=== PATIENT | male | born 1945 | race Caucasian/White ===

== ENCOUNTER 2024-12-12 20:59 | Inpatient (IN) | payer MEDICARE, OTHER, SELFPAY ==
[2024-12-12 14:56] VITALS: BP 171/95
[2024-12-12 15:27] LABS: Hematocrit 49.1 % (39.0-52.0); Hemoglobin 15.8 g/dL (13.0-18.0); Mean Corp Hgb Conc. 32.2 g/dL (33.0-37.0); Mean Corpuscular Volume 90.3 fL (80.0-94.0); Nucleated Red Blood Cells % 0 % (-); Platelet Count 234 10^3/uL (130-400); Red Cell Dist. Width 13.4 % (11.5-14.5)
[2024-12-12 15:45] LABS: Blood Urea Nitrogen 17 mg/dl (9-20); Calcium 10.4 mg/dl (8.4-10.2); Carbon Dioxide 27 mmol/L (22-30); Chloride 106 mmol/L (98-107); Glucose 159 mg/dl (70-99); Potassium 4.7 mmol/L (3.5-5.1); Sodium 142 mmol/L (135-145); eGFR > 60.00
[2024-12-12 18:01] VITALS: BMI 24.0
[2024-12-12 18:03] VITALS: BP 147/79
--- NOTE | 2024-12-12 19:12 | ED.GENMED ---
History of Present Illness
General
Chief Complaint: Facial Problem
Source: patient
Exam Limitations: none and non verbal-adult
Time Seen by Provider: 12/12/24 18:08
Nursing documentation reviewed up to this point in time: agreed with
History of Present Illness
History of Present Illness:
Patient is a 79-year-old male was sent by Dr. Mix. Patient has been been being treated by ENT for otitis externa however as per ENT patient now with facial nerve weakness concerning for tumor or malignant otitis externa. Patient was sent in for
imaging by Dr. Cantrell.
Patient reports he has had left ear pain for the past 5 weeks. It was treated by his family doctor for otitis externa with drops and symptoms never improved and he was seen by ENT. He was given a stronger drop by ENT however complains of
worsening. He reports he went to ENT office today and they noticed that he had a left facial droop and palsy.
Continues to complain of ear.
He denies any associated fever chills respiratory pain. He denies any headache.
Past History
Past History
ED Past Medical History: Cancer (Prostate), Hypercholesterolemia and Other (COVID PNA 02/26/22 hospitalized for 6 days [place])
ED Past Surgical History: Appendectomy
Social History
Tobacco: Non-smoker
Alcohol: Occasional
Personal:
Living: with family
Phy Exam
General Physical Exam
General Presentation: no apparent distress
General age: appears stated age
General Skin: warm and dry
General Habitus: normal
General Mental: alert
General Hydration: appears well hydrated
ENT Exam
ENT Exam: EOMI and other (Right canal /tm nml: left ear : tender over mastoid no erythema over mastoid + purulent drainage to canal unable to fully visualize TM )
Eye Exam
Eye Exam: PERRL and EOMI
Eye Exam General: PERRL: bilateral and EOM intact: bilateral
Pupil Exam: Bilateral: round and reactive
Cardiovascular Exam
Cardiovascular Exam: regular rate/rhythm, no murmur and normal peripheral pulses
Pulmonary Exam
Pulmonary Exam: lungs clear and no respiratory distress
Neurological Exam
Neurological Exam: alert, oriented x3 and other (+ left facial droop; difficulty closing left eye)
Musculoskeletal Exam
Musculoskeletal Exam: full ROM
Skin Exam
Skin Exam: normal color and warm/dry
Psychiatric Exam
Psychiatric Exam: normal mood/affect
Course
Orders/Labs/Results
Orders:
Orders
12/12/24 15:07
CT Facial Bones W/ Iv Contrast Urgent
Comment:
Reason For Exam: Malignant otitis externa/facial nerve palsy
CT Head With Iv Contrast Urgent
Comment:
Reason For Exam: Malignant otitis externa/facial nerve palsy
IV Insert/Care/Rem.- Treatment PRN
12/12/24 15:15
Basic Metabolic Panel Urgent
Complete Blood Count/With Diff Urgent
12/12/24 19:51
Add On- LAB Urgent
Tests Added?: lyme progressive
12/12/24 19:53
CEFTAZidime [Fortaz] 1,000 mg IV NOW STA
Abnormal Lab Results
12/12/24
15:15
MCHC 32.2 L g/dL
(33.0-37.0)
Abs Immat Gran (auto) 0.1 H 10^3/uL
(0-0.05)
Absolute Neuts (auto) 8.9 H 10^3/uL
(1.4-6.5)
Absolute Lymphs (auto) 1.1 L 10^3/uL
(1.2-3.4)
Immature Gran % 0.9 H %
(0-0.5)
Neutrophils % 84.5 H %
(42.2-75.2)
Lymphocytes % 10.6 L %
(20.5-51.1)
Glucose 159 H mg/dl
(70-99)
Calcium 10.4 H mg/dl
(8.4-10.2)
12/12/24 15:15
12/12/24 15:15
Vital Signs
Initial and Last Documented VS:
Initial Vital Signs
Temp Pulse Resp BP Pulse Ox
98.5 F 84 18 171/95 98
12/12/24 14:56 12/12/24 14:56 12/12/24 14:56 12/12/24 14:56 12/12/24 14:56
Last Documented Vital Signs
Temp Pulse Resp BP Pulse Ox
98.3 F 84 18 147/79 96
12/12/24 18:00 12/12/24 14:56 12/12/24 14:56 12/12/24 18:03 12/12/24 19:15
MDM/Problems Addressed
Differential Diagnosis Includes:
not limited to: otitis externa, facial palsy, mastoiditis
MDM/Problems Addressed:
As documented patient is a 79-year-old male being treated by ENT for otitis externa for the past several weeks however today developed facial palsy on the left side. Patient is tender over the mastoid however there is no erythema he has obvious
purulent drainage in the canal. He denies any obvious fever chills. His white count is normal. On exam he does have a palsy ; facial droop on the left and difficulty closing eye on the left. He was sent in by ENT Dr. Cantrell, imaging does confirm
moderate opacification of left mastoid air cells suggesting mastoiditis no evidence regarding the, moderate thickening of the left external ear cartilage with some stranding of the adjacent fat suggesting otitis externa. Case reviewed again with
ENT who does recommend ceftazidime and admission to the hospital service. Will still add on a Lyme.
*Radiology
Radiology exam reviewed: radiology read reviewed
*Pulse Oximetry
SaO2: 96
Oxygen Mode of Delivery: Room air
Patient hypoxic: no
*Critical Care Note
Total Time (30-74mins, 75-104mins- exclusive of procedures): Not Applicable
Patient Management
Discussion with other providers: [employer]ant (DR cantrell )
ED Attending Note
-
Portions of this chart may have been created with voice recognition software.� Occasional wrong word or��sound alike� substitutions may have occurred due to the inherent limitations of voice recognition software.
Discharge Plan
Departure
Patient Disposition: Admit
Date of Disposition: 12/12/24
Time of Disposition: 20:01
Admit to doctor: hospitalist
Presentation/result/management discussed w/ accepting MD/DO: Hospitalist
Patient with high blood pressure during this ER visit?: Yes
Condition: Fair
Covid-19: Not Applicable
Discharge Problem:
Acute mastoiditis, Otitis externa, left sided facial palsy
Prescriptions:
No Action
omeprazole 40 mg capsule,delayed release(DR/EC)
40 mg PO DAILY
fluticasone propionate 50 mcg/actuation [place],Suspension
1 spray INTRANASAL DAILY
rosuvastatin 10 mg tablet
10 mg PO HS
ipratropium-albuterol 0.5 mg-3 mg(2.5 mg base)/3 mL Solution For Nebulization
3 ml inhalation R Q4HPRN PRN (Reason: shortness of breath/wheezing) Qty: 90 0RF
prednisone 10 mg Tablet
See Rx Instructions .ROUTE .COMPLEX Qty: 30 0RF
Rx Instructions:
Take By Mouth:
40 mg daily x3 days, 30 mg daily x3 days,
20 mg daily x3 days, 10 mg daily x3 days.
Referrals:
Richelle Marley MD [Family Provider, Family Practice]
Interventions
Interventions:
*Risk Screen - Suicide Last Done: 12/12/24 14:56
*General Assessment Last Done: 12/12/24 14:56
*Neglect/Abuse Screening Last Done: 12/12/24 18:02
*ED- Fall Risk Assessment Last Done: 12/12/24 18:02
*ED COVID-19 Vaccine History Last Done: 12/12/24 14:56
ED- Neurological Assessment Last Done: 12/12/24 17:55
ED-Skin Assessment Last Done: 12/12/24 17:55
Discharge Date and Time
Print Language: MOHAWK
--- NOTE | 2024-12-12 20:20 | HPS.HSE ---
Family Physician
-
Family Physician: Richelle Marley
Chief Complaint
-
Left ear otitis media, tender mastoid, left facial droop
History of Present Illness
79-year-old male sent in by Dr. Cantrell from ENT due to being treated for left otitis externa however patient woke up with weakness/left-sided facial droop and palsy to left side of face. He has had reported left ear pain for the past 5 weeks was
using prior drops to his ear which did not improve. He then was seen by ENT and prescribed ciprofloxacin dexamethasone drops to the left ear. He complains of pain on and off to the left ear that he takes Tylenol for. He was visibly digging in his
ear during my exam and advised not to be touching the ear canal as it is currently infected. His states he frequently digs in the ear with his fingernail. CT revealed otitis externa with left side mastoiditis. Patient denies headache, fever,
chills, chest pain, palpitations, cough, shortness of breath, abdominal pain, nausea, vomiting, diarrhea, urinary symptoms. He has past medical history of prostate cancer, HLD, COVID February 26, 2022 treated in hospital for 6 days [place],
pacemaker, osteoarthritis, rheumatoid arthritis, GERD, cholelithiasis
Medical History
Past Medical History
Past Medical History: Reports Other
Additional Past Medical History:
Prostate cancer
HLD
COVID February 26, 2022 treated in hospital for 6 days [place]
Pacemaker
Osteoarthritis
Rheumatoid arthritis
HLD
GERD
cholelithiasis
Past Surgical History: Reports Other
Additional Past Surgical History:
Appendectomy
Bilateral knee replacement
Cataract extraction
Social History
Tobacco: Non-smoker
Alcohol: None
Drug: None
Personal:
Living: With Family ( Areli)
Employment: Retired
Family History
Family History: Not pertinent
Allergies / Home Medications
Allergies reflects when Allergies were last updated in [employer].
Home Medications with original date entered in [employer]
Allergy/Medication List:
Allergies
Allergy/AdvReac Type Severity Reaction Status Date / Time
linezolid Allergy Unknown Verified 12/12/24 15:03
tramadol Allergy Unknown Verified 12/12/24 15:03
gabapentin AdvReac 'Got Verified 12/12/24 15:03
spacey'
sulfamethoxazole (From AdvReac 'Got Verified 12/12/24 15:03
Bactrim) spacey'
trimethoprim (From Bactrim) AdvReac 'Got Verified 12/12/24 15:03
spacey'
Home Medications
rosuvastatin 10 mg tablet 10 mg PO HS High cholesterol 04/01/22
M.V.I. Adult 1 tab PO DAILY 12/12/24
Pepcid AC 10 mg PO BID 12/12/24
Tylenol Arthritis 1,000 mg PO Q6H PRN mild pain temp>100.4F 12/12/24
ciprofloxacin-dexamethasone 4 drp LEFT EAR BID 12/12/24
hydroxychloroquine 200 mg PO DAILY 12/12/24
prednisone 10 mg PO DAILY 12/12/24
Review of Systems
-
History Source: Patient and Family ( Areli)
A 12 point ROS was completed and negative except as noted: Yes
Constitutional: Denies Fever or Chills
EENT: Reports Other (Left mastoid pain, left ear pain with swelling of ear canal, left side facial droop, chronic [place] does not have hearing aids in); Denies Sore Throat or Runny Nose
Respiratory: Denies Cough or Trouble Breathing
Cardiac: Reports Other (Pacemaker present left upper chest wall); Denies Chest Pain, Diaphoresis, Palpitations or Syncope
Abdomen/GI: Denies Abdominal Pain, Nausea, Vomiting, Diarrhea, Constipated, Bloody Stools or Black Stools
: Denies Dysuria, Frequency, Flank Pain, Incontinence or Difficulty Voiding
Musculoskeletal: Denies Joint Pain or Edema
Skin: Denies Itching or Rash
Neurological: Denies Dizzy, Headache or Weakness
Endocrine: Reports No Symptoms
Hematologic/Lymphatic: Reports No Symptoms
Psych: Reports Calm
Physical Exam
Vital Signs
Vital Signs
Temp Pulse Resp BP Pulse Ox
98.3 F 84 18 147/79 96
12/12/24 18:00 12/12/24 14:56 12/12/24 14:56 12/12/24 18:03 12/12/24 19:15
Physical Exam
General: Comfortable and Conversant; No Fever, Chills or Sweats
HEENT: NormoCephalic, Anicteric, Moist mucous membranes, PERRLA, [place] Conjunctivae, No Ptosis, Hearing Impaired and Other (Left mastoid pain, left ear pain with swelling of ear canal, left side facial droop, chronic [place] does not have hearing aids in)
Respiratory: Clear; No Wheezes, Rales or Rhonchi
Cardiac: S1/S2 and Regular Rhythm; No Murmur, Rub, Gallop or Peripheral Edema
Breast: Deferred by me
GI: Soft, Non Tender, Non Distended, Normal Bowel Sounds and No Hepatosplenomegaly
Rectal: Deferred by Provider
Genito-urinary: Deferred by me
Musculoskeletal: No Clubbing, No Cyanosis and No Edema
Skin: Warm and Dry; No Rash or Jaundice
Neuro: AO x 3, Nonfocal/grossly intact, Facial Droop (Left side) and Other (Chronic [place] does not have hearing aids in); No Slurred Speech, Tremors or Sedated
Psych: Calm
Laboratory Results
-
12/12/24 15:15
12/12/24 15:15
Data Reviewed
-
CT Scan: Report Reviewed by me
Lab Data: Labs Reviewed by me
Impression/Plan
-
Impression/plan:
Admit to Medr
#Acute otitis externa left-sided with left-sided mastoiditis
-Consult ENT�being treated by Dr. Cantrell
- Check Lyme
- IV ceftazidime
- Continue prednisone 10 mg daily x 3 more days
- Continue Tylenol for pain, oxycodone moderate to severe pain(tolerated during knee surgery)
- Follow CBC, BMP
CT facial bones with IV contrast:
1. Moderate thickening of the left external ear cartilage with some stranding of the adjacent fat, findings suggesting otitis externa.
2. Moderate opacification of the left mastoid air cells, suggesting mastoiditis. No evidence for bony destruction. The left middle ear appears clear.
#Pacemaker
#HLD
- cont crestor 10 mg hs
#Osteoarthritis
#Rheumatoid arthritis
- pt used to be on methortrexate
- Continue Plaquenil 200 mg daily
#History of GERD
#Hx Cholelithiasis
-Continue Pepcid 10 mg twice daily
Other PMH:
COVID February 26, 2022 treated in hospital for 6 days [place]
Prostate cancer
DVT prophylaxis
Subcu Lovenox
Full code
[2024-12-12] MEDS: FORTAZ 1000 MG IV (20:26)
[2024-12-12 20:48] VITALS: BP 157/74
--- NOTE | 2024-12-12 21:12 | W.PN.UPDATE ---
Update Note
Progress Note Update
Patient seen in conjunction with ALEKSANDRA. I agree defined summation physical. I concur with assessment and plan listed otherwise.
This is a 79-year-old male with past medical history of hyperlipidemia, rheumatoid arthritis and status post pacemaker who presents to the emergency department from ENT clinic (Dr. Mix) for IV antibiotics.
Patient developed otitis externa about 5 weeks ago status post total topical management but has not developed left-sided facial weakness concerning for malignant otitis externa. Patient was started on steroids 2 days ago. He now reports worsening
pain. He still able to chew and swallow and tolerate oral intake. Denies any vision changes. Was seen in the ENT office today and was noted to have a left facial droop at the level of the maxillary level. He denies any associated fevers or
chills.
In the emergency department he was afebrile, blood pressure was 155/74 with a pulse rate of 75 and was satting 90% on room air. CBC was unremarkable. Electrolytes were normal. BUN and creatinine were normal. CT head and CT facial bones showing
moderate thickening of the left external ear cartilage with some stranding of the adjacent fat, findings suggesting otitis externa and moderate opacification of the left mastoid air cells, suggesting mastoiditis. No evidence for bony destruction.
The left middle ear appears clear.
Assessment and plan
Otitis externa complicated by mastitis with facial nerve paresis on the left
- Admit to MedSurg
- IV ceftaz/metronidazole
- Blood cultures afebrile
- Pain control and antiemetics
- Continue steroid taper
- DC topical agent
- ENT consulted and will be following
DVT prophylaxis -Lovenox subcu
CODE STATUS�full code
[2024-12-12 21:52] VITALS: BP 162/83; BMI 24.0
[2024-12-12] MEDS: CRESTOR 10 MG PO (21:57)
[2024-12-12] MEDS: TYLENOL 650 MG PO (21:57)
[2024-12-12] MEDS: ROXICODONE 5 MG PO (21:57)
--- NOTE | 2024-12-12 22:00 | PTCARENOTE ---
Pt ambulated independently from stretcher to bed. AAOx3, 5/10 pain to left ear. PRN oxycodone 5mg and tylenol 650mg provided to pt. POC reviewed with pt. Pt oriented to room, call tate in reach. VSS. NIH performed d/t left facial droop present
on admission to ED; NIH score of 2 for left facial droop. Pt reports that the facial droop began this morning when he went to his primary doctor.
[2024-12-13] MEDS: ROXICODONE 5 MG PO ×3 (02:13→20:22)
[2024-12-13] MEDS: TYLENOL 650 MG PO ×2 (02:14→18:17)
[2024-12-13] MEDS: FORTAZ IV (03:48)
[2024-12-13] MEDS: STERILE WATER FOR INJECTION IV ×2 (03:48→22:49)
[2024-12-13] MEDS: STERILE WATER FOR INJECTION 10 ML IV ×2 (03:57→11:49)
[2024-12-13] MEDS: FORTAZ 1000 MG IV ×2 (03:57→11:48)
[2024-12-13 07:33] VITALS: BP 157/80
--- NOTE | 2024-12-13 07:50 | W.PN.HOSP.TC ---
Addendum entered and electronically signed by Johny Vo MD 12/13/24 15:09:
left sided facial numbness improving
has some pain behind the left ear
no discharge from the left ear
left sided otitis externa with left sided mastoiditis
start antipsudomonal coveral ivatb
continue otic drop per ent
follow up on culture data
hld
continue crestor
ra
contue plaquenil
hx of gerd
elaine ue gerd
Original Note:
Today's Communication/Plan
-
see a/p
Assessment / Plan
Assessment / Plan
Assessment/plan
#Left-sided mastoiditis with acute otitis externa
-Patient states symptoms ongoing for > 5 weeks
-CT head and CT facial bones showing moderate thickening of the left external ear cartilage with some stranding of the adjacent fat, findings suggesting otitis externa and moderate opacification of the left mastoid air cells, suggesting mastoiditis.
No evidence for bony destruction. The left middle ear appears clear.
-Initiated on IV ceftazidime
-Blood cultures obtained in ED, pending
-Pain control, antiemetics
-Initiated on steroid taper (D3) as an outpatient, continue till 12/15.
-ENT consulted, pending eval
-Head CT, no evidence of acute intracranial abnormality
-ID consult, given concern for possible osteomyelitis
#Hyperlipidemia
-Continue Crestor
#Rheumatoid arthritis
-Continue Plaquenil 200 mg daily
#History of GERD
-Continue famotidine
CODE STATUS full code
DVT prophylaxis Lovenox
Anticipated Discharge: > 48 hours
Subjective/Interval History
-
Date of Service: December 13, 2024
Objective Data
-
Labs:
Laboratory Results
12/13/24
06:00
WBC Pending
Hgb Pending
Hct Pending
Plt Count Pending
Sodium Pending
Potassium Pending
Chloride Pending
Carbon Dioxide Pending
BUN Pending
Creatinine Pending
Glucose Pending
Calcium Pending
Total Bilirubin Pending
AST Pending
ALT Pending
Alkaline Phosphatase Pending
Vital Signs:
Vital Signs
Temp Pulse Resp BP Pulse Ox
98.3 F 69 17 157/80 99
12/13/24 07:33 12/13/24 07:33 12/13/24 07:33 12/13/24 07:33 12/13/24 07:33
I&O
12/12/24 12/13/24 12/14/24
06:59 06:59 06:59
Intake Total 120 / 600 480 / 480
Balance 120 / 600 480 / 480
Review of Systems
-
All other systems: Reviewed and negative (Except as documented)
Physical Exam
-
General: Well Developed and Comfortable
HEENT: Normocephalic and Other (Tenderness to palpation of the left mastoid.)
Respiratory: Clear to Auscultation
Cardiac: Regular Rhythm and S1/S2
GI: Soft, Nontender, Nondistended and Normal Bowel Sounds
Musculoskeletal: Other (5/5 muscular strength bilateral upper extremity and lower extremity)
Neuro: Facial Droop (To the left side)
Psych: Calm
[2024-12-13] MEDS: THERAGRAN 1 TABLET PO (08:01)
[2024-12-13] MEDS: PEPCID 10 MG PO ×2 (08:01→20:22)
[2024-12-13] MEDS: PLAQUENIL 200 MG PO (08:01)
[2024-12-13] MEDS: DELTASONE 10 MG PO (08:04)
--- NOTE | 2024-12-13 10:08 | CON.MD ---
Consultation - Medical
-
Pt seen and consult dictated.
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 This is usually caused by Pseudomonas so agree with Ceftaz but will also add otic drops.
Cultures have been negative but another one is performed today.
Will follow
[2024-12-13 10:31] LABS: Hematocrit 45.0 % (39.0-52.0); Hemoglobin 14.4 g/dL (13.0-18.0); Mean Corp Hgb Conc. 32.0 g/dL (33.0-37.0); Mean Corpuscular Volume 91.5 fL (80.0-94.0); Nucleated Red Blood Cells % 0 % (-); Platelet Count 214 10^3/uL (130-400); Red Cell Dist. Width 13.4 % (11.5-14.5)
[2024-12-13 11:01] LABS: ALT (SGPT) 19 U/L (0-50); AST (SGOT) 28 U/L (17-59); Albumin 4.6 g/dl (3.5-5.0); Alkaline Phosphatase 67 U/L (38-126); Blood Urea Nitrogen 14 mg/dl (9-20); Calcium 9.7 mg/dl (8.4-10.2); Carbon Dioxide 31 mmol/L (22-30); Chloride 101 mmol/L (98-107); Estimated Creatinine Clearance 66 ml/min; Glucose 143 mg/dl (70-99); Potassium 4.5 mmol/L (3.5-5.1); Sodium 140 mmol/L (135-145); Total Protein 6.8 g/dl (6.3-8.2); eGFR > 60.00
[2024-12-13] MEDS: GENOPTIC 0.3% EYE DROPS 5 DROP LEFT EAR ×3 (11:49→22:24)
[2024-12-13 16:00] VITALS: BP 143/74
--- NOTE | 2024-12-13 16:01 | CM ---
CM reviewed chart, patient seen bedside, initial assessment completed. Patients present. Patient lives with in a two level home, one step to enter, first floor setup. Patient reports having a cane and walker in the home after knee surgery,
does not typically use device for ambulation. Patient reports VN in past, unsure agency, was set up through [facility]. Patient denies SNF hx. PCP confirmed Richelle Marley, pharmacy [facility], confirms prescription coverage.
Patient denies insecurities at home. CM will continue to follow for all discharge planning needs.
Plan; home with , no needs anticipated
--- NOTE | 2024-12-13 16:11 | CON.ID ---
Consultation
-
Date/Time Consultation Requested: December 13, 2024 1222
Date/Time Consultation Performed: December 13, 2024 1615
Requesting Provider: Dr. Masterson
Performing Provider: Dr. Norma Grimm
Reason for Consultation: Otitis externa with mastoiditis
Chief Complaint / Past History
Chief Complaint
Left facial droop and numbness
History of Present Illness
History obtained from the patient as well as from his at bedside. He is a 9-year-old male with history of rheumatoid arthritis on hydroxychloroquine, who presented to the hospital yesterday due to acute onset of left facial droop and numbness.
Approximately 5 weeks ago, patient started having pain behind his left ear. His PCP prescribed eardrops without improvement. He was referred to ENT, cultures were negative. Patient has been on Cipro�dexamethasone eardrops without significant
improvement. Yesterday his noted patient with left facial drooping. Patient also complains of numbness on the left side of his face. No headache. He was seen by ENT yesterday who sent him to the ED. CT of the facial bones showed left
otitis externa with mastoiditis, without bony destruction. Head CT no acute change. He was started on prednisone and ceftazidime. Patient reports no swimming. He does wear hearing aids and he often does not clean the devices. No prior history
of ear infections.
Past History
Additional Past Medical History:
Rheumatoid arthritis, on hydroxychloroquine (hx Rituximab, last received 07/2021)
HLD
Pacemaker placement
History of prostate cancer s/p XRT
Bilateral total knee replacements
Appendectomy
Allergy History:
linezolid Allergy (Verified 12/12/24 15:03)
Unknown
tramadol Allergy (Verified 12/12/24 15:03)
Unknown
gabapentin Adverse Reaction (Verified 12/12/24 15:03)
'Got spacey'
sulfamethoxazole (From Bactrim) Adverse Reaction (Verified 12/12/24 15:03)
'Got spacey'
trimethoprim (From Bactrim) Adverse Reaction (Verified 12/12/24 15:03)
'Got spacey'
Medications Reviewed: Yes
Current Antibiotics:
Ceftazidime 1 g IV every 8
Social History
Tobacco: Non-Smoker
Alcohol: None
Personal:
Living: With Family
Review of Systems
Review of Systems
General: Negative Fever, Chills or Change in Appetite
HEENT: Negative Sinus Problems, Headache or Pharyngitis
Cardiovascular: Negative Chest Pain or Dyspnea
Respiratory: Negative Dyspnea or Cough
Gasteroenterology: Negative Nausea, Vomiting or Diarrhea
Genital / Urological: Negative Dysuria or Flank Pain
Endocrine: Negative Weakness
Skin / Hair / Nails: Negative Rash
Neurological: Negative Dizziness
All systems: All other systems were reviewed and were negative
Vital Signs
Temp Pulse Resp BP Pulse Ox
99.2 F 82 17 143/74 95
12/13/24 16:00 12/13/24 16:00 12/13/24 16:00 12/13/24 16:00 12/13/24 16:00
Physical Exam
Physical Exam
Constitutional: No Acute Distress and Comfortable
Head: Other (Left mastoid tenderness.)
Eyes: No Conjunctival Hemorrhage and Sclera Anicteric
Cardiovascular: Regular Rate and S1/S2
Pulmonary: Clear
Gastrointestinal: Soft, Non Tender, Non Distended, Normal Bowel Sounds and Decreased Bowel Sounds
Genito-Urinary: Negative CVA Tenderness
Extremities: Negative Edema
Neurological: AO x 3 and Other (Left lower facial droop.)
Lab / Diagnostic Study Results
12/13/24 10:01
12/13/24 10:01
Abs Immat Gran (auto) 0.1 10^3/uL (0-0.05) H 12/13/24 10:01
Absolute Neuts (auto) 9.8 10^3/uL (1.4-6.5) H 12/13/24 10:01
Absolute Lymphs (auto) 1.5 10^3/uL (1.2-3.4) 12/13/24 10:01
Absolute Monos (auto) 0.9 10^3/uL (0.1-0.6) H 12/13/24 10:01
Absolute Basos (auto) 0.1 10^3/uL (0-0.2) 12/13/24 10:01
Immature Gran % 0.9 % (0-0.5) H 12/13/24 10:01
Neutrophils % 78.9 % (42.2-75.2) H 12/13/24 10:01
Lymphocytes % 11.9 % (20.5-51.1) L 12/13/24 10:01
Monocytes % 7.1 % (1.7-9.3) 12/13/24 10:01
Eosinophils % 0.6 % (0-6) 12/13/24 10:01
Basophils % 0.6 % (0-2) 12/13/24 10:01
Microbiology Results
Micro:
12/13/24 10:20 Wound Culture - Pending
Face - Left Gram Stain - Preliminary
12/12/24 CT facial bones: Moderate thickening of the left external ear cartilage with some stranding of the adjacent fat, findings suggesting otitis externa. Moderate opacification of the left mastoid air cells, suggesting mastoiditis. No evidence
for bony destruction. The left middle ear appears clear.
12/12/[address]: No evidence of acute intracranial abnormality.
Assessment / Plan
# Left mastoiditis
# Chronic otitis media/externa
# Acute left facial palsy due to otitis/mastoiditis
# Leukocytosis - due to steroid
- Outside cx negative
-Ear cx here pending
- ENT concern about temporal bone osteo
- Dc Ceftazidime (narrow range abx)
- Start Zosyn 4.5 IV q6hr pending cx.
# Conditions [employer]GER
Rheumatoid arthritis, on hydroxychloroquine (hx Rituximab, last received 07/2021)
HLD
Pacemaker placement
History of prostate cancer s/p XRT
Bilateral total knee replacements
Appendectomy
[2024-12-13] MEDS: ZOSYN 100 IV (17:31)
[2024-12-13] MEDS: LOVENOX 40 MG SC (17:31)
[2024-12-13 21:30] LABS: Hepatitis C Antibody Negative (Negative)
[2024-12-13] MEDS: CRESTOR 10 MG PO (22:24)
[2024-12-13 23:34] VITALS: BP 144/71
[2024-12-14] MEDS: ZOSYN 100 IV ×4 (00:24→17:15)
[2024-12-14] MEDS: TYLENOL 650 MG PO ×2 (00:24→20:42)
[2024-12-14] MEDS: STERILE WATER FOR INJECTION IV ×3 (00:38→20:40)
[2024-12-14] MEDS: ROXICODONE 5 MG PO ×2 (06:16→22:13)
[2024-12-14 07:25] VITALS: BP 168/88
[2024-12-14] MEDS: DELTASONE 10 MG PO (07:59)
[2024-12-14] MEDS: PEPCID 10 MG PO ×2 (07:59→20:46)
[2024-12-14] MEDS: THERAGRAN 1 TABLET PO (07:59)
[2024-12-14] MEDS: GENOPTIC 0.3% EYE DROPS 5 DROP LEFT EAR ×2 (08:00→17:19)
[2024-12-14] MEDS: PLAQUENIL 200 MG PO (08:00)
[2024-12-14] MEDS: GENOPTIC 0.3% EYE DROPS LEFT EAR (08:00)
--- NOTE | 2024-12-14 08:45 | W.PN.HOSP.TC ---
Addendum entered and electronically signed by Johny Vo MD 12/14/24 16:55:
left sided facial numbness improving
has some pain behind the left ear
no discharge from the left ear
left sided otitis externa with left sided mastoiditis
start antipseudomonal coveral ivatb
continue otic drop per ent
follow up on culture data
hld
continue crestor
ra
contue plaquenil
hx of gerd
elaine ue gerd
Original Note:
Today's Communication/Plan
-
see s/p
Assessment / Plan
Assessment / Plan
Assessment/plan
#Left-sided mastoiditis with chronic otitis externa
#Acute left facial palsy
-Patient states symptoms ongoing for > 5 weeks
-CT head and CT facial bones showing moderate thickening of the left external ear cartilage with some stranding of the adjacent fat, findings suggesting otitis externa and moderate opacification of the left mastoid air cells, suggesting mastoiditis.
No evidence for bony destruction. The left middle ear appears clear.
-Initiated on IV ceftazidime in the ED, now discontinued, transitioned to Zosyn
-ID consulted input appreciated, transition to Zosyn
-Pain control, antiemetics
-Initiated on steroid taper (D4) as an outpatient, continue till 12/15.
-ENT following
-Head CT, no evidence of acute intracranial abnormality
-?Osteomyelitis of the skull base. Await Gram culture for antibiotics guidance.
#Hypertension
-Elevated BPs likely secondary to prednisone use vs pain
-Start amlodipine
#Hyperlipidemia
-Continue Crestor
#Rheumatoid arthritis
-Continue Plaquenil 200 mg daily
#GERD
-Continue famotidine
#Pacemaker placement
#History of prostate cancer s/p XRT
CODE STATUS full code
DVT prophylaxis Lovenox
Anticipated Discharge: 24 - 48 hours
Subjective/Interval History
-
Patient seen and examined at bedside. Complaining of left ear pain
Objective Data
-
Labs:
Laboratory Results
12/14/24
08:39
WBC Pending
Hgb Pending
Hct Pending
Plt Count Pending
Sodium Pending
Potassium Pending
Chloride Pending
Carbon Dioxide Pending
BUN Pending
Creatinine Pending
Glucose Pending
Calcium Pending
Total Bilirubin Pending
AST Pending
ALT Pending
Alkaline Phosphatase Pending
Vital Signs:
Vital Signs
Temp Pulse Resp BP Pulse Ox
97.8 F 73 16 168/88 96
12/14/24 07:25 12/14/24 07:25 12/14/24 07:25 12/14/24 07:25 12/14/24 07:25
I&O
12/13/24 12/14/24 12/15/24
06:59 06:59 06:59
Intake Total 120 / 600 1500 / 1500 480 / 480
Balance 120 / 600 1500 / 1500 480 / 480
Review of Systems
-
All other systems: Reviewed and negative (Except as documented)
Physical Exam
-
General: Well Developed and Comfortable
HEENT: Normocephalic and Other (Tenderness to palpation of the left mastoid.)
Respiratory: Clear to Auscultation
Cardiac: Regular Rhythm and S1/S2
GI: Soft, Nontender, Nondistended and Normal Bowel Sounds
Musculoskeletal: Other (5/5 muscular strength bilateral upper extremity and lower extremity)
Neuro: Facial Droop (To the left side)
Psych: Calm
[2024-12-14 09:58] LABS: Hematocrit 47.0 % (39.0-52.0); Hemoglobin 15.1 g/dL (13.0-18.0); Mean Corp Hgb Conc. 32.1 g/dL (33.0-37.0); Mean Corpuscular Volume 90.7 fL (80.0-94.0); Nucleated Red Blood Cells % 0 % (-); Platelet Count 225 10^3/uL (130-400); Red Cell Dist. Width 13.4 % (11.5-14.5)
[2024-12-14 10:26] LABS: ALT (SGPT) 18 U/L (0-50); AST (SGOT) 25 U/L (17-59); Albumin 4.8 g/dl (3.5-5.0); Alkaline Phosphatase 70 U/L (38-126); Blood Urea Nitrogen 18 mg/dl (9-20); Calcium 9.9 mg/dl (8.4-10.2); Carbon Dioxide 29 mmol/L (22-30); Chloride 104 mmol/L (98-107); Estimated Creatinine Clearance 53 ml/min; Glucose 104 mg/dl (70-99); Potassium 3.8 mmol/L (3.5-5.1); Sodium 143 mmol/L (135-145); Total Protein 7.2 g/dl (6.3-8.2); eGFR > 60.00
[2024-12-14 11:22] VITALS: BP 145/81
[2024-12-14] MEDS: NORVASC PO (11:23)
[2024-12-14] MEDS: REFRESH EYE DROPS (PF) 1 DROPS OPHTH ×2 (11:24→20:44)
--- NOTE | 2024-12-14 13:46 | W.PN.ENT ---
Today's Communication
-
as above
Impression / Plan
-
Despite lack of elevated WBC, absence of fever and normal ESR, this is almost certainly osteomyelitis of temporal bone.
Gram stain c/w Pseudomonas but will await final C and S.
Would expect facial nerve palsy to get worse before it gets better, could take weeks or months for full function to return.
In the meantime I have explained to the patient the importance of eye care to prevent drying or abrasion.
Will hopefully be able to discharge with Pic line for home IV antibiotics once we have full culture and sensitivity results.
Subjective Data
-
The patient feels about the same; moderate ear pain but he feels the ear drops are penetrating better.
Objective Data
-
Vital Signs
Temp Pulse Resp BP Pulse Ox
97.8 F 74 16 145/81 96
12/14/24 07:25 12/14/24 11:22 12/14/24 07:25 12/14/24 11:22 12/14/24 07:25
Intake & Output
12/13/24 12/14/24 12/15/24
06:59 06:59 06:59
Intake:
Oral fluids 120 / 600 1500 / 1500 480 / 480
Other:
Number of approximated MODERATE 2 2 1
amounts of urine
Lab Results
12/14/24 08:39
12/14/24 08:39
Calcium 9.9 mg/dl (8.4-10.2) 12/14/24 08:39
Total Bilirubin 0.8 mg/dl (0.2-1.3) 12/14/24 08:39
AST 25 U/L (17-59) 12/14/24 08:39
ALT 18 U/L (0-50) 12/14/24 08:39
Alkaline Phosphatase 70 U/L (38-126) 12/14/24 08:39
ESR is WNL's
Gram stain reveals G neg bacillus
Physical Exam
-
Otologic exam shows patent ear canal but small amount of granulation tissue persists.
Facial weakness more pronounced than originally.
--- NOTE | 2024-12-14 13:55 | W.PN.ID1 ---
Date of Service
Date of Service: December 14, 2024
Today's Communication
Continue Zosyn.
Assessment / Plan
# Left mastoiditis
# Chronic otitis externa with granuloma
# Acute left facial palsy due to otitis/mastoiditis
# Leukocytosis - resolved
- Outside cx negative
-Ear cx here GNR
- ENT concern about temporal bone osteo
- Continue Zosyn 4.5 IV q6hr pending cx.
# Conditions [employer]
Rheumatoid arthritis, on hydroxychloroquine (hx Rituximab, last received 07/2021)
HLD
Pacemaker placement
History of prostate cancer s/p XRT
Bilateral total knee replacements
Appendectomy
Chief Complaint
-: Other (Mastoiditis)
Subjective / Review of Systems
c/o ear drops burn
left eye not as dry
Vital Signs / Physical Exam
Vital Signs
Vital Signs
Temp Pulse Resp BP Pulse Ox
97.8 F 74 16 145/81 96
12/14/24 07:25 12/14/24 11:22 12/14/24 07:25 12/14/24 11:22 12/14/24 07:25
Physical Exam
Constitutional: No Acute Distress
Cardiovascular: Regular Rate and S1/S2
Pulmonary: Clear
Gastrointestinal: Soft, Non Tender, Non Distended and Normal Bowel Sounds
Extremities: Negative Edema
Neurological: AO x 3 and Other (left upper and lower facial droop)
Objective Data
Lab Data
Lab Results
12/14/24 08:39
12/14/24 08:39
ESR 3 mm/hour (0-20) 12/14/24 08:39
Estimated Creat Clear 53 ml/min 12/14/24 08:39
Total Bilirubin 0.8 mg/dl (0.2-1.3) 12/14/24 08:39
AST 25 U/L (17-59) 12/14/24 08:39
ALT 18 U/L (0-50) 12/14/24 08:39
Alkaline Phosphatase 70 U/L (38-126) 12/14/24 08:39
Most recent labs reviewed.
Micro Results:
12/13/24 10:20 Wound Culture - Preliminary
Face - Left Gram negative bacilli
Gram Stain - Preliminary
12/12/24 CT facial bones: Moderate thickening of the left external ear cartilage with some stranding of the adjacent fat, findings suggesting otitis externa. Moderate opacification of the left mastoid air cells, suggesting mastoiditis. No evidence
for bony destruction. The left middle ear appears clear.
12/12/[address]: No evidence of acute intracranial abnormality.
[2024-12-14 15:43] VITALS: BP 147/77
[2024-12-14] MEDS: LOVENOX SC (17:22)
[2024-12-14] MEDS: CRESTOR 10 MG PO (20:45)
[2024-12-14] MEDS: GENOPTIC 0.3% EYE DROPS 1 DROP LEFT EAR (20:46)
[2024-12-14 23:28] VITALS: BP 132/64
[2024-12-15] MEDS: ZOSYN 100 IV ×5 (00:14→23:53)
[2024-12-15] MEDS: TYLENOL 650 MG PO ×4 (00:48→23:52)
[2024-12-15] MEDS: STERILE WATER FOR INJECTION IV ×2 (01:01→14:50)
--- NOTE | 2024-12-15 07:05 | W.PN.HOSP.TC ---
Addendum entered and electronically signed by Shan Dowd MD 12/15/24 22:16:
Attending Addendum-
I saw and evaluated the patient. I reviewed the resident�s note and agree with findings and plan as documented in the resident�s note. Sub: Complains of pain behind left ear. Denied fevers chills. Full 12 point ROS reviewed and negative except as
documented Exam: Vitals reviewed in chart GEN-NAD HEENT Left ear with thick greenish ous present heart RRR Lungs CTA B/L LE no edema Neuro left ey unable to close left sided facial droop
Plan:
#Left-sided mastoiditis with acute on chronic otitis externa
#Acute left facial palsy
-CT head and CT facial bones- moderate thickening of the left external ear cartilage with some stranding of the adjacent fat, findings suggesting otitis externa and moderate opacification of the left mastoid air cells, suggesting mastoiditis. No
evidence for bony destruction. The left middle ear appears clear.
-ceftazidime transitioned to Zosyn
-pseudomonas sensi-P
-ID consulted input appreciated
-Pain control, antiemetics
-last day steroid taper
-ENT following
-cont cipro-dex gtts
-treat as OM 6 weeks IV abx
#Hypertension
-cont new amlodipine
#Hyperlipidemia
-Continue Crestor
#Rheumatoid arthritis
-Continue Plaquenil 200 mg daily
#GERD
-Continue famotidine
#Pacemaker placement
#History of prostate cancer s/p XRT
CODE STATUS full code
DVT prophylaxis Lovenox
Dispo- likely DC to SNF on IV abx
Time spent coordinating care, review of plan of care with resident, personally reviewed records in EMR, med rec, consults, notes, labs, radiology, d/w nursing � 51 mins
Original Note:
Today's Communication/Plan
-
- artificial tears
- f/u sensitivities
Assessment / Plan
Assessment / Plan
Assessment/plan
#Left-sided mastoiditis with chronic otitis externa
#Acute left facial palsy
#?Osteomyelitis of skull base
-Patient states symptoms ongoing for > 5 weeks
-CT head and CT facial bones showing moderate thickening of the left external ear cartilage with some stranding of the adjacent fat, findings suggesting otitis externa and moderate opacification of the left mastoid air cells, suggesting mastoiditis.
No evidence for bony destruction. The left middle ear appears clear.
-Initiated on IV ceftazidime in the ED, now discontinued, transitioned to Zosyn (started 12/13)
-Pain control, antiemetics
-Steroid taper complete today (12/15)
-ENT following with concern for osteomyelitis of skull base
-Head CT, no evidence of acute intracranial abnormality
-Culture grew pseudomonas
- Continue Zosyn IV, and gentamicin drops
- artificial tears
- f/u sensitivities
#Hypertension
-Elevated BPs likely secondary to prednisone use vs pain
- amlodipine is ordered but patient declines
- Monitor VS / BP
#Hyperlipidemia
-Continue Crestor
#Rheumatoid arthritis
-Continue hydroxychloroquine 200 mg daily
#GERD
-Continue famotidine
#Pacemaker placement
#History of prostate cancer s/p XRT
CODE STATUS full code
DVT prophylaxis Lovenox
Disposition: will likely need PICC for IV antibiotics after discharge
Anticipated Discharge: > 48 hours
Subjective/Interval History
-
Date of Service: December 15, 2024
79 yo M PMH HLD, rheumatoid arthritis, GERD, cholelithiasis, osteoarthritis, prostate cancer who was was being treated for left otitis externa but experienced left-sided facial droop and then came into ED.
Imaging workup showed otitis externa with left sided mastoiditis. Concern for osteomyelitis. Culture resulted in pseudomonas. On gentamicin drops, IV zosyn.
doing well this morning, only reports pain near left ear, but denies headache. denies chest pain, dyspnea
Objective Data
-
Labs:
Laboratory Results
12/15/24
06:00
WBC Pending
Hgb Pending
Hct Pending
Plt Count Pending
Sodium Pending
Potassium Pending
Chloride Pending
Carbon Dioxide Pending
BUN Pending
Creatinine Pending
Glucose Pending
Calcium Pending
Total Bilirubin Pending
AST Pending
ALT Pending
Alkaline Phosphatase Pending
WBC 8.2
Hgb 14.4
Plt 214
Na 131
K 3.8
Cr 1.0
HbA1c 6.1
AST/ALT 24/
Alkphos 66
Vital Signs:
Vital Signs
Temp Pulse Resp BP Pulse Ox
97.8 F 66 14 132/64 97
12/14/24 23:28 12/14/24 23:28 12/14/24 23:28 12/14/24 23:28 12/14/24 23:28
BP has been somewhat elevated to 160s/80s this admission
I&O
12/14/24 12/15/24 12/16/24
06:59 06:59 06:59
Intake Total 1500 / 1500 480 / 480
Balance 1500 / 1500 480 / 480
Review of Systems
-
History Source: Patient
Constitutional: Reports No Symptoms
EENT: Reports Other (ear pain L)
Respiratory: Reports No Symptoms
Cardiac: Reports No Symptoms
Abdomen/GI: Reports No Symptoms
Genitourinary: Reports No Symptoms
Musculoskeletal: Reports No Symptoms
Skin: Reports No Symptoms
Neuro: Reports No Symptoms
Physical Exam
-
General: No Apparent Distress
HEENT: Normocephalic, Atraumatic and Other (tenderness to palpation of left jaw, some purulent discharge in left ear)
Respiratory: Clear to Auscultation
Cardiac: Regular Rhythm
GI: Soft and Nontender
Musculoskeletal: Other (no lower extremity edema)
Skin: Warm and Dry
Neuro: Awake, Alert and Facial Droop (unable to raise eyebrows, smile, or close eyes on L side)
Psych: Calm
[2024-12-15 08:26] VITALS: BP 149/80
[2024-12-15 08:27] LABS: Hematocrit 45.5 % (39.0-52.0); Hemoglobin 14.4 g/dL (13.0-18.0); Mean Corp Hgb Conc. 31.6 g/dL (33.0-37.0); Mean Corpuscular Volume 91.7 fL (80.0-94.0); Nucleated Red Blood Cells % 0 % (-); Platelet Count 214 10^3/uL (130-400); Red Cell Dist. Width 13.4 % (11.5-14.5)
[2024-12-15] MEDS: GENOPTIC 0.3% EYE DROPS 5 DROP LEFT EAR ×2 (09:01→15:39)
[2024-12-15 09:03] LABS: Glycohemoglobin (HgbA1c) 6.1 % (4.0-5.6)
[2024-12-15] MEDS: PEPCID 10 MG PO ×2 (09:05→20:09)
[2024-12-15] MEDS: THERAGRAN 1 TABLET PO (09:05)
[2024-12-15] MEDS: NORVASC PO (09:06)
[2024-12-15 09:07] LABS: ALT (SGPT) 17 U/L (0-50); AST (SGOT) 24 U/L (17-59); Albumin 4.3 g/dl (3.5-5.0); Alkaline Phosphatase 66 U/L (38-126); Blood Urea Nitrogen 19 mg/dl (9-20); Calcium 9.7 mg/dl (8.4-10.2); Carbon Dioxide 30 mmol/L (22-30); Chloride 103 mmol/L (98-107); Estimated Creatinine Clearance 53 ml/min; Glucose 94 mg/dl (70-99); Potassium 3.8 mmol/L (3.5-5.1); Sodium 141 mmol/L (135-145); Total Protein 6.5 g/dl (6.3-8.2); eGFR > 60.00
[2024-12-15] MEDS: REFRESH EYE DROPS (PF) 1 DROPS OPHTH ×3 (09:15→23:52)
[2024-12-15] MEDS: PLAQUENIL 200 MG PO (09:15)
[2024-12-15 12:06] LABS: Lyme Antibody Screen, EIA Negative (Negative)
--- NOTE | 2024-12-15 12:43 | CM ---
Chart reviewed and patient is currently on IV Zosyn, plan is to home when stable.
Plan; Home with spouse when stable.
--- NOTE | 2024-12-15 13:13 | W.PN.ID1 ---
Date of Service
Date of Service: December 15, 2024
Today's Communication
Await final cx data.
Assessment / Plan
# Left mastoiditis
# Chronic otitis externa with granuloma
# Acute left facial palsy due to otitis/mastoiditis
# Leukocytosis - resolved
- Outside cx negative
-Ear cx here Pseudomonas
- ENT concern about temporal bone osteo
- Continue Zosyn 4.5 IV q6hr final cx data.
-Anticipate 6 week of IV abx
# Conditions [employer]
Rheumatoid arthritis, on hydroxychloroquine (hx Rituximab, last received 07/2021)
HLD
Pacemaker placement
History of prostate cancer s/p XRT
Bilateral total knee replacements
Appendectomy
Chief Complaint
-: Other (Mastoiditis)
Subjective / Review of Systems
3 loose stools this morning.
Vital Signs / Physical Exam
Vital Signs
Vital Signs
Temp Pulse Resp BP Pulse Ox
97.5 F 70 14 149/80 98
12/15/24 08:26 12/15/24 08:26 12/15/24 08:26 12/15/24 08:26 12/15/24 08:26
Physical Exam
Constitutional: No Acute Distress and Comfortable
Head: Other (left mastoid tenderness)
Pulmonary: Clear
Gastrointestinal: Soft and Non Tender
Neurological: Other (left facial droop)
Objective Data
Lab Data
Lab Results
12/15/24 07:32
12/15/24 07:32
ESR 3 mm/hour (0-20) 12/14/24 08:39
Estimated Creat Clear 53 ml/min 12/15/24 07:32
Total Bilirubin 0.7 mg/dl (0.2-1.3) 12/15/24 07:32
AST 24 U/L (17-59) 12/15/24 07:32
ALT 17 U/L (0-50) 12/15/24 07:32
Alkaline Phosphatase 66 U/L (38-126) 12/15/24 07:32
Most recent labs reviewed.
Micro Results:
12/13/24 10:20 Wound Culture - Preliminary
Face - Left Pseudomonas species
Gram Stain - Preliminary
12/12/24 CT facial bones: Moderate thickening of the left external ear cartilage with some stranding of the adjacent fat, findings suggesting otitis externa. Moderate opacification of the left mastoid air cells, suggesting mastoiditis. No evidence
for bony destruction. The left middle ear appears clear.
12/12/[address]: No evidence of acute intracranial abnormality.
--- NOTE | 2024-12-15 13:42 | W.PN.ENT ---
Today's Communication
-
pt seen at bedside
Impression / Plan
-
Despite lack of elevated WBC, absence of fever and normal ESR, this is almost certainly osteomyelitis of temporal bone.
Gram stain c/w Pseudomonas but will await final C and S.
Would expect facial nerve palsy to get worse before it gets better, could take weeks or months for full function to return.
In the meantime I have explained to the patient the importance of eye care to prevent drying or abrasion.
Will hopefully be able to discharge with Pic line for home IV antibiotics once we have full culture and sensitivity results.
Please continue ciprofloxacin/dexamethasone ear drops
Subjective Data
-
still with left ear/postauricular pain
Objective Data
-
Vital Signs
Temp Pulse Resp BP Pulse Ox
97.5 F 70 14 149/80 98
12/15/24 08:26 12/15/24 08:26 12/15/24 08:26 12/15/24 08:26 12/15/24 08:26
Intake & Output
12/14/24 12/15/24 12/16/24
06:59 06:59 06:59
Intake:
Oral fluids 1500 / 1500 480 / 480
Other:
Number of approximated MODERATE 2 1
amounts of urine
Lab Results
12/15/24 07:32
12/15/24 07:32
Calcium 9.7 mg/dl (8.4-10.2) 12/15/24 07:32
Total Bilirubin 0.7 mg/dl (0.2-1.3) 12/15/24 07:32
AST 24 U/L (17-59) 12/15/24 07:32
ALT 17 U/L (0-50) 12/15/24 07:32
Alkaline Phosphatase 66 U/L (38-126) 12/15/24 07:32
cullture shows pseudomonas aaeruginosa- sensitivites not back yet
Physical Exam
-
left ear canal swollen
Chest: Clear
Respiratory: Clear
Data Reviewed
-
Radiology Results: Report Reviewed
[2024-12-15 15:18] VITALS: BP 137/75
[2024-12-15] MEDS: VISBIOME 2 CAP PO (15:39)
[2024-12-15] MEDS: LOVENOX SC (18:01)
[2024-12-15] MEDS: CRESTOR 10 MG PO (20:09)
[2024-12-15] MEDS: GENOPTIC 0.3% EYE DROPS 1 DROP LEFT EAR (20:10)
[2024-12-15] MEDS: ROXICODONE 5 MG PO (22:41)
[2024-12-15 23:51] VITALS: BP 154/76
[2024-12-16] MEDS: ZOSYN 100 IV (05:20)
[2024-12-16 07:05] VITALS: BP 163/77
--- NOTE | 2024-12-16 07:09 | W.PN.HOSP.TC ---
Addendum entered and electronically signed by Shan Dowd MD 12/16/24 21:24:
Attending Addendum-
I saw and evaluated the patient. I reviewed the resident�s note and agree with findings and plan as documented in the resident�s note. Sub: pain much better controlled. Feels that vision feels blurry at times. Denies fevers chills. Seen with
present. 'hes going home. can he go on a trip in a week?' Full 12 point ROS reviewed and negative except as documented Exam: Vitals reviewed in chart GEN-NAD HEENT Left ear with thick greenish pus present mild TTP mastoid, heart RRR Lungs CTA B/L
LE no edema RUE Picc in place, Neuro left eye- unable to close completely, left sided facial droop
Plan:
#Left-sided mastoiditis with acute on chronic otitis externa
#Acute left facial palsy
-CT head and CT facial bones- moderate thickening of the left external ear cartilage with some stranding of the adjacent fat, findings suggesting otitis externa and moderate opacification of the left mastoid air cells, suggesting mastoiditis. No
evidence for bony destruction. The left middle ear appears clear.
-zosyn transitioned to meropenem for ease of administration
-ear wound cx- pseudomonas sensi-resulted
-ID input appreciated
-Pain control, antiemetics
-start eye drops and patch
-last day steroid taper
-ENT following
-cont gentamicin ear gtts
-place PICC 12/16
-treat as OM-IV abx until 01/23
#Hypertension
-uncontrolled
-increase amlodipine
#Hyperlipidemia
-Continue Crestor
#Rheumatoid arthritis
-Continue Plaquenil 200 mg daily
#GERD
-Continue famotidine
#Pacemaker placement
#History of prostate cancer s/p XRT
CODE STATUS full code
DVT prophylaxis Lovenox
Dispo- DC home on IV abx in am
ACP
Patient consented to discuss, was with , time spent explanation of advance directives, changes in health status, patient�s health care wishes if the patient becomes unable to make health decisions, goals of care, code status, and prognosis, 'I
need him around I have a trip coming up'- 16 minutes
Time spent coordinating care, review of plan of care with resident, personally reviewed previous records in EMR, med rec, labs, radiology, d/w nursing, family ID CM total time documented is exclusive of any additional time listed that was spent in
advance care planning discussion -�51 minutes
Original Note:
Today's Communication/Plan
-
- IV meropenem for osteomyelitis
- L eye patch
- teaching for IV abx tomorrow
Assessment / Plan
Assessment / Plan
Assessment/plan
#Left-sided mastoiditis with chronic otitis externa
#Acute left facial palsy
#?Osteomyelitis of skull base
-Patient states symptoms ongoing for > 5 weeks
-CT head and CT facial bones showing moderate thickening of the left external ear cartilage with some stranding of the adjacent fat, findings suggesting otitis externa and moderate opacification of the left mastoid air cells, suggesting mastoiditis.
No evidence for bony destruction. The left middle ear appears clear.
-Initiated on IV ceftazidime in the ED then transitioned to Zosyn (on 12/13), then transitioned to IV meropenem on 12/16.
-Pain control, antiemetics
-Culture grew pseudomonas
- IV meropenem and gentamicin drops
- artificial tears
- L eye patch
- PICC placed; teaching on admin IV abx tomorrow with plan to continue IV meropenem until 01/23
- follow-up with ID and ENT outpatient
#Hypertension
- amlodipine 2.5mg
- Monitor VS / BP
#Hyperlipidemia
-Continue Crestor
#Rheumatoid arthritis
-Continue hydroxychloroquine 200 mg daily
#GERD
-Continue famotidine
#Pacemaker placement
#History of prostate cancer s/p XRT
CODE STATUS full code
DVT prophylaxis Lovenox
Disposition: discharge to home on 12/17 after teaching of IV abx. CM aware. Patient prefers home IV abx.
spoke with patient told him that 'the IV antibiotics are approximately $368 per week for 12 weeks, is that okay with you?' The patient confirmed that he is okay with this plan.
Anticipated Discharge: Within 24 hours
Subjective/Interval History
-
Date of Service: December 16, 2024
79 yo M with osteomyelitis, L otitis externa, L mastoiditis PMH HLD, rheumatoid arthritis, GERD, cholelithiasis, osteoarthritis, prostate cancer who was was being treated for left otitis externa but experienced left-sided facial droop and then came
into ED.
He reports some pain on left ear, but feels well. able to ambulate to/from restroom. facial droop unchanged from yesterday.
sensitivities came back this morning, ID put meropenem
Objective Data
-
Labs:
Laboratory Results
12/16/24
06:00
WBC Pending
Hgb Pending
Hct Pending
Plt Count Pending
Sodium Pending
Potassium Pending
Chloride Pending
Carbon Dioxide Pending
BUN Pending
Creatinine Pending
Glucose Pending
Calcium Pending
WBC 8.0
Hgb 13.5
Eelctrolytes within normal limits
micro sensitivities
1. Pseudomonas aeruginosa
M.I.C. RX
--------- ---
Aztreonam 8 S
Cefepime 4 S
Ceftazidime 8 S
Ciprofloxacin 1 I
Meropenem <=1 S
Piperacillin/Tazobactam <=8 S
Tobramycin <=2 S

lean process deployment consultant recommendations
PT OT consulted - 'pt currently requires supervision to no assistance to complete simple ADLs, functional transfers, ambulation. issued and reviewed wear schedule for L eye. pt and spouse verbalized understanding. no acute OT needs identified'
Vital Signs:
Vital Signs
Temp Pulse Resp BP Pulse Ox
98 F 70 12 154/76 97
12/15/24 23:51 12/15/24 23:51 12/15/24 23:51 12/15/24 23:51 12/15/24 23:51
BP running in 150s/160s
I&O
12/15/24 12/16/24 12/17/24
06:59 06:59 06:59
Intake Total 480 / 480 300 / 300
Balance 480 / 480 300 / 300
Review of Systems
-
History Source: Patient
Constitutional: Reports No Symptoms
EENT: Reports Other (ear pain L)
Respiratory: Reports No Symptoms
Cardiac: Reports No Symptoms
Abdomen/GI: Reports No Symptoms
Genitourinary: Reports No Symptoms
Musculoskeletal: Reports No Symptoms
Skin: Reports No Symptoms
Neuro: Reports No Symptoms
Physical Exam
-
General: No Apparent Distress
HEENT: Normocephalic, Atraumatic and Other (tenderness to palpation of left jaw, some purulent discharge in left ear)
Respiratory: Clear to Auscultation
Cardiac: Regular Rhythm
GI: Soft and Nontender
Musculoskeletal: Other (no lower extremity edema)
Skin: Warm and Dry
Neuro: Awake, Alert and Facial Droop (unable to raise eyebrows, smile, or close eyes on L side)
Psych: Calm
[2024-12-16 07:48] VITALS: BP 163/77
[2024-12-16 08:13] LABS: Hematocrit 43.6 % (39.0-52.0); Hemoglobin 13.5 g/dL (13.0-18.0); Mean Corp Hgb Conc. 31.0 g/dL (33.0-37.0); Mean Corpuscular Volume 91.8 fL (80.0-94.0); Platelet Count 210 10^3/uL (130-400); Red Cell Dist. Width 13.5 % (11.5-14.5)
[2024-12-16] MEDS: VISBIOME 2 CAP PO (08:18)
[2024-12-16] MEDS: THERAGRAN 1 TABLET PO (08:19)
[2024-12-16] MEDS: PEPCID 10 MG PO ×2 (08:19→22:26)
[2024-12-16] MEDS: GENOPTIC 0.3% EYE DROPS 5 DROP LEFT EAR ×3 (08:19→22:25)
[2024-12-16] MEDS: NORVASC 2.5 MG PO ×2 (08:22→09:48)
[2024-12-16] MEDS: REFRESH EYE DROPS (PF) 1 DROPS OPHTH ×3 (08:24→22:25)
[2024-12-16] MEDS: PLAQUENIL 200 MG PO (08:24)
[2024-12-16 09:31] LABS: Blood Urea Nitrogen 18 mg/dl (9-20); Calcium 9.6 mg/dl (8.4-10.2); Carbon Dioxide 30 mmol/L (22-30); Chloride 106 mmol/L (98-107); Estimated Creatinine Clearance 53 ml/min; Glucose 97 mg/dl (70-99); Potassium 4.2 mmol/L (3.5-5.1); Sodium 140 mmol/L (135-145); eGFR > 60.00
--- NOTE | 2024-12-16 11:17 | W.PN.ID1 ---
Date of Service
Date of Service: December 16, 2024
Today's Communication
Meropenem 1g IV q8 x 6 weeks through 01/23/25.
Assessment / Plan
# Left mastoiditis
# ENT concern about temporal bone osteo
# Chronic otitis externa with granuloma
# Acute left facial palsy due to otitis/mastoiditis
# Leukocytosis - resolved
-Ear cx here Pseudomonas, intermediate resistant to cipro
- Change Zosyn to Meropenem for ease of administration.
- Meropenem 1g IV q8 x 6 weeks through 01/23/25.
- Ordered PICC
- Infusion sheet submitted to sample case porter.
# Conditions [employer]
Rheumatoid arthritis, on hydroxychloroquine (hx Rituximab, last received 07/2021)
HLD
Pacemaker placement
History of prostate cancer s/p XRT
Bilateral total knee replacements
Appendectomy
Chief Complaint
-: Other (Mastoiditis)
Subjective / Review of Systems
Feeling better today.
Vital Signs / Physical Exam
Vital Signs
Vital Signs
Temp Pulse Resp BP Pulse Ox
97.1 F 79 16 164/82 97
12/16/24 07:05 12/16/24 09:48 12/16/24 07:05 12/16/24 09:48 12/16/24 07:05
Physical Exam
Constitutional: No Acute Distress
Head: Other (left mastoid tenderness)
Pulmonary: Clear
Gastrointestinal: Soft and Non Tender
Extremities: Negative Edema
Neurological: Other (left facial droop)
Objective Data
Lab Data
Lab Results
12/16/24 07:54
12/16/24 07:54
ESR 3 mm/hour (0-20) 12/14/24 08:39
Estimated Creat Clear 53 ml/min 12/16/24 07:54
Total Bilirubin 0.7 mg/dl (0.2-1.3) 12/15/24 07:32
AST 24 U/L (17-59) 12/15/24 07:32
ALT 17 U/L (0-50) 12/15/24 07:32
Alkaline Phosphatase 66 U/L (38-126) 12/15/24 07:32
Most recent labs reviewed.
Micro Results:
12/13/24 10:20 Wound Culture - Final
Face - Left Pseudomonas aeruginosa
Gram Stain - Final
12/12/24 CT facial bones: Moderate thickening of the left external ear cartilage with some stranding of the adjacent fat, findings suggesting otitis externa. Moderate opacification of the left mastoid air cells, suggesting mastoiditis. No evidence
for bony destruction. The left middle ear appears clear.
12/12/[address]: No evidence of acute intracranial abnormality.
Care Review
Plan reviewed with: Physician (Dr. Cantrell)
[2024-12-16 11:46] VITALS: BP 160/78
--- NOTE | 2024-12-16 12:59 | W.PN.ENT ---
Today's Communication
-
from our point of view he is ready for discharge
Impression / Plan
-
Pt now with culture-confirmed Pseudomonas.
Pic line has been placed. ID to manage antibiotic dosage.
We will hopefully discharge soon with several weeks of IV antibiotics, and will continue gentamicin eye drops to the ear.
He is instructed on eye care and he knows to contact educational program assistant immediately if there is any eye pain
Subjective Data
-
Pain improved but unable to close eye. However, no eye pain
Objective Data
-
Vital Signs
Temp Pulse Resp BP Pulse Ox
97.1 F 76 16 160/78 97
12/16/24 07:05 12/16/24 11:46 12/16/24 07:05 12/16/24 11:46 12/16/24 07:05
Intake & Output
12/15/24 12/16/24 12/17/24
06:59 06:59 06:59
Intake:
Oral fluids 480 / 480 300 / 300
Other:
Number of approximated MODERATE 1 2
amounts of urine
Lab Results
12/16/24 07:54
12/16/24 07:54
Calcium 9.6 mg/dl (8.4-10.2) 12/16/24 07:54
Total Bilirubin 0.7 mg/dl (0.2-1.3) 12/15/24 07:32
AST 24 U/L (17-59) 12/15/24 07:32
ALT 17 U/L (0-50) 12/15/24 07:32
Alkaline Phosphatase 66 U/L (38-126) 12/15/24 07:32
Physical Exam
-
No facial swelling.
Improved ear drainage.
FN very weak on left
Chest: Clear
Respiratory: Clear
[2024-12-16 13:03] VITALS: PULSE 79; O2SAT 95
--- NOTE | 2024-12-16 13:09 | PTOTSP ---
pt currently requires supervision to no assistance to complete simple ADLs, functional transfers, ambulation. issued and reviewed wear schedule for L eye. pt and spouse verbalized understanding. no acute OT needs identified, will sign off.
--- NOTE | 2024-12-16 13:20 | CM ---
Addendum entered by Sugar Harris 12/16/24 14:51:
Home IV ABX has a copay of $368.36 per month, patient and spouse aware, Drake from [facility] to teach patient at 12:30 tomorrow.
Original Note:
Chart reviewed and casework supervisor met with patient and spouse, and received a script for infusion, options reviewed with patient and spouse for home IV ABX and referral sent to [facility], including script, PICC line information and H&P. Referrals
sent to [facility] visiting nurses, Per Drake at [facility] he will be out tomorrow morning to meet with patient and teach home IV ABX therapy, casework supervisor will wait on cost of home infusion.
Plan; Home with [facility] infusion and [facility] visiting nurses.
[2024-12-16] MEDS: STERILE WATER FOR INJECTION 20 ML IV ×2 (14:19→22:21)
[2024-12-16] MEDS: MERREM 1000 MG IV ×2 (15:02→22:21)
[2024-12-16 15:49] VITALS: BP 160/81
[2024-12-16] MEDS: LOVENOX SC (17:21)
[2024-12-16] MEDS: CRESTOR 10 MG PO (22:24)
[2024-12-16] MEDS: TYLENOL 650 MG PO (22:27)
[2024-12-16 23:56] VITALS: BP 153/75
[2024-12-17] MEDS: STERILE WATER FOR INJECTION 20 ML IV ×2 (05:17→13:24)
[2024-12-17] MEDS: MERREM 1000 MG IV ×2 (05:17→13:24)
[2024-12-17] MEDS: ROXICODONE 5 MG PO (05:23)
[2024-12-17] MEDS: REFRESH EYE DROPS (PF) 1 DROPS OPHTH ×2 (05:23→08:10)
--- NOTE | 2024-12-17 07:11 | W.PN.HOSP.TC ---
Addendum entered and electronically signed by Alex Sterling MD, Resident 12/18/24 17:39:
Addendum to specify acuity of the suspected osteomyelitis
# concern for acute osteomyelitis of skull base, per ENT
- continue IV meropenem until 01/23/2025, per ID; and as listed below and in prior notes
Addendum entered and electronically signed by Shan Dowd MD 12/17/24 23:30:
Attending Addendum-
I saw and evaluated the patient. I reviewed the resident�s note and agree with findings and plan as documented in the resident�s note. Sub:ready to go home. Denies fevers chills. Seen with present. 'i think i got this!' Full 12 point ROS
reviewed and negative except as documented Exam: Vitals reviewed in chart GEN-NAD HEENT Left ear mild TTP @ mastoid, heart RRR Lungs CTA B/L LE no edema RUE Picc in place, Neuro left eye- unable to close completely, left sided facial droop
Plan:
#Left-sided mastoiditis with acute on chronic otitis externa
#Acute left facial palsy
-CT head and CT facial bones- moderate thickening of the left external ear cartilage with some stranding of the adjacent fat, findings suggesting otitis externa and moderate opacification of the left mastoid air cells, suggesting mastoiditis. No
evidence for bony destruction. The left middle ear appears clear.
-zosyn transitioned to meropenem for ease of administration
-ear wound cx- pseudomonas sensi-resulted
-ID input appreciated
-Pain control, antiemetics
-cont eye drops and patch
-completed steroid taper
-ENT following
-cont gentamicin ear gtts
-PICC 12/16
-treat as OM-IV abx until 01/23
#Hypertension
- better controlled
-increase amlodipine
#Hyperlipidemia
-Continue Crestor
#Rheumatoid arthritis
-Continue Plaquenil 200 mg daily
#GERD
-Continue famotidine
#Pacemaker placement
#History of prostate cancer s/p XRT
CODE STATUS full code
DVT prophylaxis Lovenox
Dispo- DC home on IV abx
Time spent coordinating care, DC planning, review of DC plan of care with resident, transition of care, review of records, med rec/scripts sent electronically, consults, notes, d/w consultants, nursing, family, and CM� 32 mins >50% of this time was
devoted to counseling and coordination of care
Original Note:
Today's Communication/Plan
-
- discharge today
Assessment / Plan
Assessment / Plan
Assessment/plan
79 yo M PMH HLD, rheumatoid arthritis, GERD, cholelithiasis, osteoarthritis, prostate cancer who is being treated for with osteomyelitis, L otitis externa, L mastoiditis, and acute L facial palsy.
#Left-sided mastoiditis with chronic otitis externa
#Acute left facial palsy
# Concern for Osteomyelitis of skull base
-Patient states symptoms ongoing for > 5 weeks
-CT head and CT facial bones showing moderate thickening of the left external ear cartilage with some stranding of the adjacent fat, findings suggesting otitis externa and moderate opacification of the left mastoid air cells, suggesting mastoiditis.
No evidence for bony destruction. The left middle ear appears clear.
-Initiated on IV ceftazidime in the ED then transitioned to Zosyn (on 12/13), then transitioned to IV meropenem on 12/16. - today is day 2 of meropenem
-Pain control, antiemetics
-Culture grew pseudomonas
- IV meropenem and gentamicin drops
- artificial tears
- L eye patch
- PICC placed 12/16; teaching on admin IV abx today with plan to continue IV meropenem until 01/23/2025, per ID
- follow-up with ID and ENT outpatient
- pain control on discharge with oxycodone, 10 tablets
#Hypertension
- start amlodipine 5mg
#Hyperlipidemia
-Continue Crestor
#Rheumatoid arthritis
-Continue hydroxychloroquine 200 mg daily
#GERD
-Continue famotidine
#Pacemaker placement
#History of prostate cancer s/p XRT
CODE STATUS full code
DVT prophylaxis Lovenox
Disposition: discharge to home today
Anticipated Discharge: Today
Subjective/Interval History
-
Date of Service: December 17, 2024
reports mild pain near ear/jaw on left side but improving
Objective Data
-
Labs:
Laboratory Results
12/17/24
06:00
WBC Pending
Hgb Pending
Hct Pending
Plt Count Pending
Sodium Pending
Potassium Pending
Chloride Pending
Carbon Dioxide Pending
BUN Pending
Creatinine Pending
Glucose Pending
Calcium Pending
WBC 10.6 up from 8.0
Hgb 15
Plt 220
Electrolyes within normal limits
Vital Signs:
Vital Signs
Temp Pulse Resp BP Pulse Ox
98.1 F 82 14 153/75 95
12/16/24 23:56 12/16/24 23:56 12/16/24 23:56 12/16/24 23:56 12/16/24 23:56
BP slightly elevated
I&O
12/16/24 12/17/24 12/18/24
06:59 06:59 06:59
Intake Total 300 / 300 660 / 660
Output Total 400 / 400
Balance 300 / 300 260 / 260
Review of Systems
-
History Source: Patient
Constitutional: Reports No Symptoms
EENT: Reports Other (ear pain L)
Respiratory: Reports No Symptoms
Cardiac: Reports No Symptoms
Abdomen/GI: Reports No Symptoms
Genitourinary: Reports No Symptoms
Musculoskeletal: Reports No Symptoms
Skin: Reports No Symptoms
Neuro: Reports No Symptoms
Physical Exam
-
General: No Apparent Distress
HEENT: Normocephalic, Atraumatic and Other (tenderness to palpation of left jaw, left ear)
Respiratory: Clear to Auscultation
Cardiac: Regular Rhythm
GI: Soft and Nontender
Musculoskeletal: Other (no lower extremity edema)
Skin: Warm and Dry
Neuro: Awake, Alert and Facial Droop (unable to raise eyebrows, smile, or close eyes on L side)
Psych: Calm
[2024-12-17 08:03] LABS: Hematocrit 46.5 % (39.0-52.0); Hemoglobin 15.0 g/dL (13.0-18.0); Mean Corp Hgb Conc. 32.3 g/dL (33.0-37.0); Mean Corpuscular Volume 90.1 fL (80.0-94.0); Platelet Count 220 10^3/uL (130-400); Red Cell Dist. Width 13.4 % (11.5-14.5)
[2024-12-17] MEDS: NORVASC 5 MG PO (08:09)
[2024-12-17] MEDS: VISBIOME 2 CAP PO (08:09)
[2024-12-17] MEDS: THERAGRAN 1 TABLET PO (08:09)
[2024-12-17] MEDS: PEPCID 10 MG PO (08:10)
[2024-12-17] MEDS: GENOPTIC 0.3% EYE DROPS 5 DROP LEFT EAR (08:10)
[2024-12-17] MEDS: PLAQUENIL 200 MG PO (08:10)
[2024-12-17 08:24] VITALS: BP 169/84
[2024-12-17 08:41] LABS: Blood Urea Nitrogen 19 mg/dl (9-20); Calcium 10.0 mg/dl (8.4-10.2); Carbon Dioxide 27 mmol/L (22-30); Chloride 104 mmol/L (98-107); Estimated Creatinine Clearance 59 ml/min; Glucose 199 mg/dl (70-99); Potassium 4.6 mmol/L (3.5-5.1); Sodium 141 mmol/L (135-145); eGFR > 60.00
--- NOTE | 2024-12-17 11:02 | W.PN.ID1 ---
Date of Service
Date of Service: December 17, 2024
Today's Communication
DC home.
Assessment / Plan
# Left mastoiditis
# ENT concern about temporal bone osteo
# Chronic otitis externa with granuloma
# Acute left facial palsy due to otitis/mastoiditis
# Leukocytosis - resolved
-Ear cx here Pseudomonas, intermediate resistant to cipro
- Change Zosyn to Meropenem for ease of administration.
- Meropenem 1g IV q8 x 6 weeks through 01/23/25.
- PICC in place
- Infusion sheet submitted to family preservation caseworker.
- DC home today.
# Conditions SIGNING TEACHER
Rheumatoid arthritis, on hydroxychloroquine (hx Rituximab, last received 07/2021)
HLD
Pacemaker placement
History of prostate cancer s/p XRT
Bilateral total knee replacements
Appendectomy
Chief Complaint
-: Other (Mastoiditis)
Subjective / Review of Systems
[facility] in room teaching pt and meropenem infusion.
PT feeling better.
Vital Signs / Physical Exam
Vital Signs
Vital Signs
Temp Pulse Resp BP Pulse Ox
97.8 F 85 18 169/84 98
12/17/24 08:24 12/17/24 08:24 12/17/24 08:24 12/17/24 08:24 12/17/24 08:24
Physical Exam
Constitutional: No Acute Distress
Head: Other (left mastoid tenderness)
Cardiovascular: Regular Rate
Pulmonary: Clear
Gastrointestinal: Soft and Non Tender
Extremities: Negative Edema
Neurological: Other (left facial droop)
Objective Data
Lab Data
Lab Results
12/17/24 07:46
12/17/24 07:46
ESR 3 mm/hour (0-20) 12/14/24 08:39
Estimated Creat Clear 59 ml/min 12/17/24 07:46
Total Bilirubin 0.7 mg/dl (0.2-1.3) 12/15/24 07:32
AST 24 U/L (17-59) 12/15/24 07:32
ALT 17 U/L (0-50) 12/15/24 07:32
Alkaline Phosphatase 66 U/L (38-126) 12/15/24 07:32
Most recent labs reviewed.
Micro Results:
12/13/24 10:20 Wound Culture - Final
Face - Left Pseudomonas aeruginosa
Gram Stain - Final
12/12/24 CT facial bones: Moderate thickening of the left external ear cartilage with some stranding of the adjacent fat, findings suggesting otitis externa. Moderate opacification of the left mastoid air cells, suggesting mastoiditis. No evidence
for bony destruction. The left middle ear appears clear.
12/12/[address]: No evidence of acute intracranial abnormality.
--- NOTE | 2024-12-17 11:24 | CM ---
Plan is to home with [facility] infusion, teaching today at 10am, medication to be delivered this evening, patient has been set up with [facility] visiting nurses.
Yamila Bruno
[phone]

Plan; Home with [facility] infusion and [facility] visiting nurses.
[2024-12-17 14:30] VITALS: BP 160/72
--- NOTE | 2024-12-17 15:08 | W.DCSUMMARY ---
Addendum entered and electronically signed by Shan Dowd MD 12/17/24 23:31:
Read, reviewed, and agree. See same day progress note for additional details.
Shay Dowd MD
Original Note:
Documented by User: Alex Sterling MD, Resident 12/17/24 17:33
Discharge Summary
Discharge Data
Date of Admission: 12/12/24
Date of Discharge: 12/17/24
-
Pending Results: No
Hospital Course
Discharging Physician : Shan Dowd MD; Alex Sterling MD
Disposition : Home
Primary care physician : Richelle Marley
Principal Discharge diagnosis : Osteomyelitis of skull base, mastoiditis, otitis externa, left facial palsy
Chronic Discharge diagnosis : Prostate cancer, HLD, COVID February 26, 2022 treated in hospital for 6 days [place], Pacemaker, Osteoarthritis, Rheumatoid arthritis, HLD, GERD, cholelithiasis, Appendectomy, Bilateral knee replacement, Cataract
extraction
Hospital Course :
79-year-old male sent in by Dr. Cantrell from ENT due to being treated for left otitis externa however patient woke up with weakness/left-sided facial droop and palsy to left side of face. He has had reported left ear pain for the past 5 weeks was
using prior drops to his ear which did not improve. He then was seen by ENT and prescribed ciprofloxacin dexamethasone drops to the left ear. He complains of pain on and off to the left ear that he takes Tylenol for. He was visibly digging in his
ear during my exam and advised not to be touching the ear canal as it is currently infected. His states he frequently digs in the ear with his fingernail. Patient denies headache, fever, chills, chest pain, palpitations, cough, shortness of
breath, abdominal pain, nausea, vomiting, diarrhea, urinary symptoms. He has past medical history of prostate cancer, HLD, COVID February 26, 2022 treated in hospital for 6 days [place], pacemaker, osteoarthritis, rheumatoid arthritis, GERD,
cholelithiasis
In the ED, CT revealed otitis externa with left side mastoiditis. ENT and ID were consulted. Culture from ear sample grew Pseudomonas Aeruginosa, and ENT raised concern for osteomyelitis of skull base / temporal bone. He was initially started on IV
piperacillin-tazobactam (12/13/2024). After the sensitivities returned, he was transitioned to IV meropenem on 12/16/2024.
The following problems were addressed during this admission.
# Osteomyelitis of skull base/temporal bone
# Left mastoiditis
# Left otitis externa
# Acute left facial palsy
- Plan is to continue IV meropenem 1g q8h until 01/23/2025, per ID
- Patient had a PICC line placed and successfully underwent training
- For additional source control, patient has been advised to administer ear drops (gentamicin) 5 drops tid.
- For pain control, he was discharged with a script for oxycodone (10 tablets)
- When he was admitted, he was in the middle of a steroid taper from from 12/11/2024 - 12/15/2024, started outpatient)
- Patient has been advised to follow-up with outpatient ID and ENT
- for symptomatic management of acute facial palsy, eye drops and an eye patch were provided
- Patient was advised by ENT that the facial palsy may take several weeks to improve/resolve
- Patient has been advised to return to the clinic or ED if there is any significant changes in vision
# Hypertension
- Patient was started on amlodipine 5mg for elevated BP during the admission
# chronic issues as per below
#Hyperlipidemia
-Continue home crestor
#Rheumatoid arthritis
-Continue home hydroxychloroquine 200 mg daily
#GERD
-Continue home famotidine
#Pacemaker placement
#History of prostate cancer s/p XRT
# Discharge recommendations
- Patient has been advised to continue IV administration of antibiotics until 01/23/2025
- He has been advised to continue ear drops (gentamicin)
- Patient was counseled on symptomatic management of facial palsy with eye drops (OTC) and eye patch
- Patient was advised to start amlodipine due to hypertension from elevated blood pressure readings during his admission
- Patient has been advised to follow-up with PCP, ID, and ENT in the outpatient setting
- Patient was advised to not continue the ciprofloxacin drops, and recommended to follow with ENT.
- During rounds, patient was advised to cover the L ear and PICC line when bathing
Labs at discharge
WBC 10.6
Hgb 15
Plt 220
Na+ 141
K+ 4.6
Cl- 104
CO2 27
BUN 19
Cr 0.9
HbA1c 6.1
Ca 10.0
Lyme screen was negative this admission
Important imaging findings :
Facial Bones CT 12/12/2024
IMPRESSION: Moderate thickening of the left external ear cartilage with some stranding of the adjacent fat, findings suggesting otitis externa.
Moderate opacification of the left mastoid air cells, suggesting mastoiditis. No evidence for bony destruction. The left middle ear appears clear.
Head CT 12/12/2024
There is no evidence for acute intracranial hemorrhage.
The enhancement pattern of the brain appears within normal limits. The dural venous sinuses appear patent as well as the visualized superior internal jugular veins.
As seen on CT of the facial bones, there is mild opacification of the left mastoid air cells, most likely mastoiditis. No evidence for bone destruction.
Thickening of the left external ear cartilage with some stranding of the adjacent fat, findings suggesting otitis externa.
Mild atrophy in this 79-year-old. 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
CXR 12/16/2024
1. New right upper extremity PICC line in place with the catheter tip terminating in the SVC.
2. Moderate irregular shaped radiodensities projecting over the left lower lung which appear unchanged from 04/01/2022. Diagnostic possibilities are (1) pleural calcification from previous infection or traumatic injury, (2) chronic granulomatous
disease infection, or (3) chronic aspirated barium.
3. Left-sided cardiac pacemaker in place.
Discharge Plan
-
Patient Disposition: Home (Routine Discharge)
Discharge Diagnosis/Procedures: Osteomyelitis, mastoiditis, otitis externa
Condition: Good
Diet: Regular
Activity: As tolerated
Driving Restrictions: As prior to admission
Bathing Restrictions: Please cover L ear and PICC line when bathing
Referrals:
Richelle Marley MD [Family Provider, Family Practice] - in one week
Abdifatah Cantrell MD [Active, Otology] - in three to four weeks
Norma Grimm MD [Active, Infectious Diseases] - in three to four weeks
Additional Discharge Medication Instructions: Please continue IV meropenem three times a day until January 22, 2025
Please continue gentamicin ear drops three times a day
Pleas continue the eye drops due to facial palsy
Please start amlodipine 5mg daily for high blood pressure
You may continue the probiotic (the one you received during your hospital admission is listed below) but you may choose any probiotic.
Prescriptions:
New
amlodipine 5 mg Tablet
5 mg PO DAILY 30 Days Qty: 30 0RF
gentamicin 0.3 % Drops
5 drp LEFT EAR TID 10 Days Qty: 150 0RF
meropenem 1 gram Recon Soln
1,000 mg IV Q8H 36 Days Qty: 461316 0RF
Refresh Classic (PF) 1.4-0.6 % Dropperette
1 drops ophthalmic (eye) QIDPRN PRN (Reason: b/l dry eyes) 21 Days Qty: 84 0RF
Lactobac/Bifidobac [Visbiome]
2 cap PO DAILY 14 Days 0RF
Continued
rosuvastatin 10 mg tablet
10 mg PO HS
M.V.I. Adult
1 tab PO DAILY
Pepcid AC
10 mg PO BID
Tylenol Arthritis
1,000 mg PO Q6H PRN (Reason: mild pain temp>100.4F)
hydroxychloroquine
200 mg PO DAILY
prednisone
10 mg PO DAILY
Rx Instructions:
Daily x 5 days to stop 12/15/2024
Held
ciprofloxacin-dexamethasone
4 drp LEFT EAR BID
Hold Instructions: Resume on 01/14/25. Please follow up with Dr. Cantrell in ENT before resuming these ear drops.
Patient Comments:
Patient reportedly started a few days ago was to take for 7 days
Discharge Orders:
Discharge Patient (As Directed); Ordered 12/17/24
Ordered By: Alex Sterling
Discharge Date and Time
Discharge Date/Time: 12/17/24 14:58
Print Language: HEBREW

Documented by User: Shan Dowd MD 12/17/24 23:28
Discharge Summary
Discharge Data
Date of Admission: 12/12/24
Date of Discharge: 12/17/24
Discharge Plan
-
Patient Disposition: Home (Routine Discharge)
Discharge Diagnosis/Procedures: Osteomyelitis, mastoiditis, otitis externa
Condition: Good
Diet: Regular
Activity: As tolerated
Driving Restrictions: As prior to admission
Bathing Restrictions: Please cover L ear and PICC line when bathing
Referrals:
Richelle Marley MD [Family Provider, Family Practice] - in one week
Abdifatah Cantrell MD [Active, Otology] - in three to four weeks
Norma Grimm MD [Active, Infectious Diseases] - in three to four weeks
Additional Discharge Medication Instructions: Please continue IV meropenem three times a day until January 22, 2025
Please continue gentamicin ear drops three times a day
Pleas continue the eye drops due to facial palsy
Please start amlodipine 5mg daily for high blood pressure
You may continue the probiotic (the one you received during your hospital admission is listed below) but you may choose any probiotic.
Prescriptions:
New
amlodipine 5 mg Tablet
5 mg PO DAILY 30 Days Qty: 30 0RF
gentamicin 0.3 % Drops
5 drp LEFT EAR TID 10 Days Qty: 150 0RF
meropenem 1 gram Recon Soln
1,000 mg IV Q8H 36 Days Qty: [id number] 0RF
Refresh Classic (PF) 1.4-0.6 % Dropperette
1 drops ophthalmic (eye) QIDPRN PRN (Reason: b/l dry eyes) 21 Days Qty: 84 0RF
Lactobac/Bifidobac [Visbiome]
2 cap PO DAILY 14 Days 0RF
Continued
rosuvastatin 10 mg tablet
10 mg PO HS
M.V.I. Adult
1 tab PO DAILY
Pepcid AC
10 mg PO BID
Tylenol Arthritis
1,000 mg PO Q6H PRN (Reason: mild pain temp>100.4F)
hydroxychloroquine
200 mg PO DAILY
prednisone
10 mg PO DAILY
Rx Instructions:
Daily x 5 days to stop 12/15/2024
Held
ciprofloxacin-dexamethasone
4 drp LEFT EAR BID
Hold Instructions: Resume on 01/14/25. Please follow up with Dr. Cantrell in ENT before resuming these ear drops.
Patient Comments:
Patient reportedly started a few days ago was to take for 7 days
Discharge Orders:
Discharge Patient (As Directed); Ordered 12/17/24
Ordered By: Alex Sterling
Discharge Date and Time
Discharge Date/Time: 12/17/24 14:58
Print Language: HEBREW
--- NOTE | 2024-12-18 09:48 | PN.CDI ---
CDI
- -
CDI:
Physician Documentation Request
Admit Date: 12/12/24 20:59
Dear Doctor Asher,
Patient is being treated for concern of osteomyelitis of temporal bone.
Please clarify which of the following accurately represents the acuity of the osteomyelitis :
____ Acute
Chronic
____ Other
Use of terms such as suspected, likely, concern for, or probable (associated with a specific diagnosis that is being evaluated, monitored, or treated as if it exists) are acceptable and can be coded in the inpatient setting, when documented at the
time of discharge.
Thank you,
Kristan Neal RN, BSN
CDI Specialist
tiger text
Please use your independent medical judgment in providing your response.
== END 2024-12-17 14:58 | disposition home health service (06) | DRG 540 ==
LOC: 4 WEST ACU 20:59
PROVIDERS: Clinical Nurse Specialist Family Health; Radiology Diagnostic Radiology; ADMITTING PHYSICIAN Internal Medicine; ATTENDING PHYSICIAN Family Medicine; CONSULT PHYSICIAN Internal Medicine Infectious Disease; EMERGENCY PHYSICIAN Emergency Medicine; FAMILY PHYSICIAN Family Medicine; OTHER PHYSICIAN Otolaryngology
PROC: 02HV33Z Insertion of Infusion Device into Superior Vena Cava, Percutaneous Approach (ICD-10-PCS; 2024-12-16)
DX: M86.18 Other acute osteomyelitis, other site (principal); H70.002 Acute mastoiditis without complications, left ear; H60.502 Unspecified acute noninfective otitis externa, left ear; E78.00 Pure hypercholesterolemia, unspecified; M06.9 Rheumatoid arthritis, unspecified; K21.9 Gastro-esophageal reflux disease without esophagitis; B96.5 Pseudomonas (aeruginosa) (mallei) (pseudomallei) as the cause of diseases classified elsewhere; G51.0 Bell's palsy; I10 Essential (primary) hypertension; D72.828 Other elevated white blood cell count; T38.0X5A Adverse effect of glucocorticoids and synthetic analogues, initial encounter; H60.62 Unspecified chronic otitis externa, left ear; Z96.653 Presence of artificial knee joint, bilateral; Z95.0 Presence of cardiac pacemaker; Z92.3 Personal history of irradiation; Z86.16 Personal history of COVID-19; Z85.46 Personal history of malignant neoplasm of prostate; Z79.899 Other long term (current) drug therapy
CPT/HCPCS: 70460; 70487; 71045; 80048; 80053; 83036; 85025; 85027; 85652; 86618; 86803; 87070; 87077; 87186; 87205; 96374; 97161; 97166; 99284; J2185; Q9967

== ENCOUNTER 2025-02-09 07:42 | Emergency (ER) | payer MEDICARE, OTHER, SELFPAY ==
[2025-02-09 07:45] VITALS: BP 164/85
[2025-02-09 08:28] VITALS: BMI 25.3
--- NOTE | 2025-02-09 08:29 | ED.GENMED ---
History of Present Illness
General
Chief Complaint: Facial Problem
Source: patient
Exam Limitations: none
Time Seen by Provider: 02/09/25 08:25
Nursing documentation reviewed up to this point in time: agreed with
History of Present Illness
History of Present Illness:
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 He presents today for 'the left side of my face feels hot,' pain in left cheek area, ear feels
blocked, he has a sensation of oozing from the ear but nothing comes out, point tender left cheek but discomfort includes the ear area and left side of his throat.. The symptoms started at 2 AM. He states pain is now 4/10. He took Tylenol at 2
AM. He denies fever or chills. He denies sore throat or pain with swallowing.
Past History
Past History
ED Past Medical History: Cancer (Prostate), Hypercholesterolemia and Other (COVID PNA 02/26/22 hospitalized for 6 days [place])
ED Past Surgical History: Appendectomy, Cardiac (Pacemaker) and Orthopedic
Social History
Tobacco: Non-smoker
Alcohol: Occasional
Personal:
Living: with family
Review of Systems
Review of Systems
Allergies reviewed?: Yes
All Other Systems: ROS reviewed and negative except as documented in HPI and ROS
Phy Exam
Physical Exam
Physical Exam:
GENERAL: No acute distress. A&Ox3.
CONSTITUTIONAL: Afebrile.
EYES: clear, conjunctivae normal
ENMT: moist mucus membranes, Pharynx nl, no trismus. Immediately tender to palpate over left mid maxillary area. No notable swelling redness or warmth. No palpable dental abscesses or pain in the gingival mucosa areas. Ear canals appear
normal, TMs obstructed by cerumen. No significant tenderness with tugging on the ear. The skin of the ear and surrounding scalp and face is without redness or swelling.
Neck: Supple, full range of motion, rotating head to right aggravates the facial discomfort, no lymphadenopathy
RESPIRATORY: Regular respirations, nonlabored, lungs clear.
CARDIOVASCULAR: Regular rate and rhythm, no murmurs, no rubs.
GI: Soft, nontender
MUSCULOSKELETAL: Moves with ease. Well perfused.
SKIN: Warm, dry, pink
PSYCH: Normal mood and affect. Well kept, interactive and appropriate
NEUROLOGIC: Awake, alert and oriented. No focal neurological deficits
Course
Orders/Labs/Results
Orders:
Orders
02/09/25 08:25
CT Facial Bones W/ Iv Contrast Urgent
Comment:
Reason For Exam: pain left ear, L maxilla, recent infection
02/09/25 08:35
Complete Blood Count/With Diff Urgent
Comprehensive Metabolic Panel Urgent
Abnormal Lab Results
02/09/25
08:35
MCHC 32.4 L g/dL
(33.0-37.0)
Abs Immat Gran (auto) 0.1 H 10^3/uL
(0-0.05)
Absolute Monos (auto) 0.9 H 10^3/uL
(0.1-0.6)
Immature Gran % 0.6 H %
(0-0.5)
Lymphocytes % 16.9 L %
(20.5-51.1)
Monocytes % 10.5 H %
(1.7-9.3)
Glucose 122 H mg/dl
(70-99)
02/09/25 08:35
02/09/25 08:35
Vital Signs
Initial and Last Documented VS:
Initial Vital Signs
Temp Pulse Resp BP Pulse Ox
99.1 F 91 14 164/85 99
02/09/25 07:45 02/09/25 07:45 02/09/25 07:45 02/09/25 07:45 02/09/25 07:45
Last Documented Vital Signs
Temp Pulse Resp BP Pulse Ox
99.1 F 79 16 136/72 97
02/09/25 07:45 02/09/25 12:21 02/09/25 12:21 02/09/25 12:21 02/09/25 12:21
MDM/Problems Addressed
Differential Diagnosis Includes:
Parotitis, dental infection/abscess, mastoiditis
MDM/Problems Addressed:
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 He presents today for 'the left side of my face feels hot,' pain in left cheek area, ear feels
blocked, he has a sensation of oozing from the ear but nothing comes out, point tender left cheek but discomfort includes the ear area and left side of his throat.. The symptoms started at 2 AM. He states pain is now 4/10. He took Tylenol at 2
AM. He denies fever or chills. He denies sore throat or pain with swallowing.
Has similar symptoms of stuffiness in left cheek and ear and Dr. Cantrell put him on Flonase with not much relief.
Afebrile, NAD
No significant pain
With his recent history of left mastoiditis and osteomyelitis of skull base/temporal bone will obtain CT of the area 10:45 AM:
CBC unremarkable
CMP unremarkable
11:15 AM:
CT facial bones radiology report read: IMPRESSION:
Again seen is moderate thickening of the LEFT external ear cartilage suggestive of otitis externa. Small amount of fluid also present within the left mastoid air cells which can be seen with acute mastoiditis. No bony destruction. Left middle ear is
clear.
Mild degenerative change of the temporomandibular joints.
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
Consulted ENT Dr. Ro who reviewed CT report and agrees and texts: 'This report is not bad. Small amount of fluid in mastoid with a clear middle ear is not a sign of concerning mastoiditis. Seems ok to me.'
Pt stable for discharge
*Pulse Oximetry
SaO2: 99
Oxygen Mode of Delivery: Room air
Patient hypoxic: no
*Critical Care Note
Total Time (30-74mins, 75-104mins- exclusive of procedures): Not Applicable
ED Attending Note
-
Portions of this chart may have been created with voice recognition software.� Occasional wrong word or��sound alike� substitutions may have occurred due to the inherent limitations of voice recognition software.
Discharge Plan
Departure
Patient Disposition: Home (Routine Discharge)
Date of Disposition: 02/09/25
Time of Disposition: 12:10
Patient with high blood pressure during this ER visit?: No
Condition: Good
Discharge Problem:
Mastoiditis
Instructions: Mastoiditis
Prescriptions:
No Action
rosuvastatin 10 mg tablet
10 mg PO HS
M.V.I. Adult
1 tab PO DAILY
Pepcid AC
10 mg PO BID
Tylenol Arthritis
1,000 mg PO Q6H PRN (Reason: mild pain temp>100.4F)
ciprofloxacin-dexamethasone
4 drp LEFT EAR BID
Patient Comments:
Patient reportedly started a few days ago was to take for 7 days
hydroxychloroquine
200 mg PO DAILY
prednisone
10 mg PO DAILY
Rx Instructions:
Daily x 5 days to stop 12/15/2024
amlodipine 5 mg Tablet
5 mg PO DAILY 30 Days Qty: 30 0RF
gentamicin 0.3 % Drops
5 drp LEFT EAR TID 10 Days Qty: 150 0RF
meropenem 1 gram Recon Soln
1,000 mg IV Q8H 36 Days Qty: [id number] 0RF
Refresh Classic (PF) 1.4-0.6 % Dropperette
1 drops ophthalmic (eye) QIDPRN PRN (Reason: b/l dry eyes) 21 Days Qty: 84 0RF
Lactobac/Bifidobac [Visbiome]
2 cap PO DAILY 14 Days 0RF
Referrals:
Richelle Marley MD [Family Provider, Family Practice]
Abdifatah Cantrell MD [Active, Otology] - Keep scheduled appt
Activity Restrictions/Additional Instructions:
As we discussed, the ENT doctor looked at your CAT scan report and states it does not look bad and you are okay for discharge and keep your follow-up appointment in February.
Interventions
Interventions:
*Risk Screen - Suicide Last Done: 02/09/25 07:53
*General Assessment Last Done: 02/09/25 08:28
*Neglect/Abuse Screening Last Done: 02/09/25 07:53
*ED- Fall Risk Assessment Last Done: 02/09/25 08:28
*ED COVID-19 Vaccine History Last Done: 02/09/25 08:28
*Nursing Disposition Last Done: 02/09/25 12:22
ED- Neurological Assessment Last Done: 02/09/25 12:16
ED-Skin Assessment Last Done: 02/09/25 12:16
Discharge Date and Time
Discharge Date/Time: 02/09/25 12:24
Print Language: [place] CITIZEN
[2025-02-09 08:48] LABS: Hematocrit 43.2 % (39.0-52.0); Hemoglobin 14.0 g/dL (13.0-18.0); Mean Corp Hgb Conc. 32.4 g/dL (33.0-37.0); Mean Corpuscular Volume 90.0 fL (80.0-94.0); Nucleated Red Blood Cells % 0 % (-); Platelet Count 210 10^3/uL (130-400); Red Cell Dist. Width 13.5 % (11.5-14.5)
[2025-02-09 09:30] LABS: ALT (SGPT) 15 U/L (0-50); AST (SGOT) 21 U/L (17-59); Albumin 4.4 g/dl (3.5-5.0); Alkaline Phosphatase 82 U/L (38-126); Blood Urea Nitrogen 14 mg/dl (9-20); Calcium 9.9 mg/dl (8.4-10.2); Carbon Dioxide 27 mmol/L (22-30); Chloride 107 mmol/L (98-107); Estimated Creatinine Clearance 59 ml/min; Glucose 122 mg/dl (70-99); Potassium 4.1 mmol/L (3.5-5.1); Sodium 142 mmol/L (135-145); Total Protein 6.8 g/dl (6.3-8.2); eGFR > 60.00
[2025-02-09 12:21] VITALS: BP 136/72
== END 2025-02-09 12:24 | disposition home or self-care (01) ==
LOC: EMR 07:42
PROVIDERS: Registered Nurse; EMERGENCY PHYSICIAN Student in an Organized Health Care Education/Training Program; FAMILY PHYSICIAN Family Medicine
DX: H70.92 Unspecified mastoiditis, left ear (principal); E78.00 Pure hypercholesterolemia, unspecified; Z86.16 Personal history of COVID-19; Z87.01 Personal history of pneumonia (recurrent); Z90.49 Acquired absence of other specified parts of digestive tract; Z95.0 Presence of cardiac pacemaker
CPT/HCPCS: 99284; 70487; 80053; 85025; Q9967

== ENCOUNTER 2025-02-18 09:31 | Emergency (ER) | payer MEDICARE, OTHER, SELFPAY ==
[2025-02-18 09:45] VITALS: BP 148/73
--- NOTE | 2025-02-18 11:34 | ED.GENMED ---
History of Present Illness
General
Chief Complaint: Facial Problem
Source: patient
Exam Limitations: none
Time Seen by Provider: 02/18/25 11:33
Nursing documentation reviewed up to this point in time: agreed with
History of Present Illness
History of Present Illness:
Patient is a 79-year-old male with past medical history of hyperlipidemia prostate cancer pacemaker osteomyelitis of base of skull, mastoiditis otitis externa presents to the ER for evaluation. Patient was admitted for this osteomyelitis
mastoiditis here dose on December 12 December 17. At that time he was being treated by ENT for left otitis externa. Patient was treated with IV antibiotics and sent home with IV antibiotic until January 23.
. Patient reports the last couple days his left side of his face has been sensitive to cold air. Yesterday starting around 12 PM he noticed pain to the left face and from the ear and down his neck. He also reports pain is worse with moving his
neck to the left.
In addition to initial admission. Patient was again seen here February 09 and discharged home.
Past History
Past History
ED Past Medical History: Cancer (Prostate), Hypercholesterolemia and Other (COVID PNA 02/26/22 hospitalized for 6 days [place])
ED Past Surgical History: Appendectomy, Cardiac (Pacemaker) and Orthopedic
Social History
Tobacco: Non-smoker
Alcohol: Occasional
Personal:
Living: with family
Phy Exam
General Physical Exam
General Presentation: no apparent distress
General age: appears stated age
General Skin: warm and dry
General Habitus: normal
General Mental: alert
General Hydration: appears well hydrated
ENT Exam
ENT Exam: other (Tender to left ear anterior tragus and lateral neck unable to visualize TM, obscured by wax; no drainage, no obvious redness/swelling to ear. non tender over mastoid )
Neurological Exam
Neurological Exam: alert, oriented x3, no motor deficits and no sensory deficits
Musculoskeletal Exam
Musculoskeletal Exam: full ROM
Skin Exam
Skin Exam: normal color and warm/dry
Psychiatric Exam
Psychiatric Exam: normal mood/affect
Course
Orders/Labs/Results
Orders:
Orders
02/18/25 12:55
IV Insert/Care/Rem.- Treatment PRN
02/18/25 12:57
CT Facial Bones W/ Iv Contrast Urgent
Comment:
Reason For Exam: left sided facial pain
02/18/25 13:08
Complete Blood Count/With Diff Urgent
Comprehensive Metabolic Panel Urgent
02/18/25 15:34
Ciprofloxacin HCl [Cipro] 500 mg PO NOW STA
Abnormal Lab Results
02/18/25
13:08
WBC 11.8 H 10^3/uL
(4.8-10.8)
MCHC 32.8 L g/dL
(33.0-37.0)
Abs Immat Gran (auto) 0.2 H 10^3/uL
(0-0.05)
Absolute Neuts (auto) 8.6 H 10^3/uL
(1.4-6.5)
Absolute Monos (auto) 1.0 H 10^3/uL
(0.1-0.6)
Immature Gran % 1.4 H %
(0-0.5)
Lymphocytes % 15.7 L %
(20.5-51.1)
Glucose 117 H mg/dl
(70-99)
02/18/25 13:08
02/18/25 13:08
Vital Signs
Initial and Last Documented VS:
Initial Vital Signs
Temp Pulse Resp BP Pulse Ox
99.0 F 88 16 148/73 94
02/18/25 09:45 02/18/25 09:45 02/18/25 09:45 02/18/25 09:45 02/18/25 09:45
Last Documented Vital Signs
Temp Pulse Resp BP Pulse Ox
99.0 F 80 16 140/70 99
02/18/25 09:45 02/18/25 15:52 02/18/25 15:52 02/18/25 15:52 02/18/25 15:52
MDM/Problems Addressed
Differential Diagnosis Includes:
Not limited to otitis externa less likely osteomyelitis
MDM/Problems Addressed:
Patient is a 79-year-old male who was recently admitted December for otitis externa osteomyelitis of skull base temporal bone and mastoiditis. He presents with left ear pain. He denies any fever or chills. He is in no acute distress. White count
very minimally elevated. CAT scan shows again a left otitis externa and nonspecific opacification of the left mastoid air cells which is again seen. wbc minimally elevated.
Case reviewed with ENT on-call Dr. Perez who recommends Cipro 500 mg twice a day and will have patient follow-up with Dr. Cantrell in the next couple of days. In addition we will use Ciprodex 4 drops twice a day in that ear. Pt is well appearing.
*Radiology
Radiology exam reviewed: radiology read reviewed
*Pulse Oximetry
SaO2: 99
Oxygen Mode of Delivery: Room air
Patient hypoxic: no
*Critical Care Note
Total Time (30-74mins, 75-104mins- exclusive of procedures): Not Applicable
Data Reviewed
Review of Other/Old Records Reveals: Labs, Radiology Studies and Discharge Summary
Source: patient and spouse
Patient Management
Discussion with other providers: Lens Examiner (ENT)
ED Attending Note
-
Portions of this chart may have been created with voice recognition software.� Occasional wrong word or��sound alike� substitutions may have occurred due to the inherent limitations of voice recognition software.
Discharge Plan
Departure
Patient Disposition: Home (Routine Discharge)
Date of Disposition: 02/18/25
Time of Disposition: 15:34
Patient with high blood pressure during this ER visit?: Yes
Condition: Fair
Covid-19: Not Applicable
Discharge Problem:
Otitis externa
Instructions: Outer ear infection - ED (DC)
Prescriptions:
New
ciprofloxacin HCl [Cipro] 500 mg tablet
500 mg PO BID Qty: 20 0RF
ciprofloxacin-dexamethasone 0.3-0.1 % drops,suspension
4 drp otic (ear) BID Qty: 7.5 0RF
No Action
rosuvastatin 10 mg tablet
10 mg PO HS
M.V.I. Adult
1 tab PO DAILY
Pepcid AC
10 mg PO BID
Tylenol Arthritis
1,000 mg PO Q6H PRN (Reason: mild pain temp>100.4F)
ciprofloxacin-dexamethasone
4 drp LEFT EAR BID
Patient Comments:
Patient reportedly started a few days ago was to take for 7 days
hydroxychloroquine
200 mg PO DAILY
prednisone
10 mg PO DAILY
Rx Instructions:
Daily x 5 days to stop 12/15/2024
amlodipine 5 mg Tablet
5 mg PO DAILY 30 Days Qty: 30 0RF
gentamicin 0.3 % Drops
5 drp LEFT EAR TID 10 Days Qty: 150 0RF
meropenem 1 gram Recon Soln
1,000 mg IV Q8H 36 Days Qty: [id number] 0RF
Refresh Classic (PF) 1.4-0.6 % Dropperette
1 drops ophthalmic (eye) QIDPRN PRN (Reason: b/l dry eyes) 21 Days Qty: 84 0RF
Lactobac/Bifidobac [Visbiome]
2 cap PO DAILY 14 Days 0RF
Referrals:
Richelle Marley MD [Emergency Provider, Family Practice]
Abdifatah Cantrell MD [Active, Otology]
Activity Restrictions/Additional Instructions:
As discussed please start Cipro 500 mg twice a day for the next 10 days along with Ciprodex eardrops. These medications were sent to your pharmacy. follow-up with ENT in the next 2 days please call today to make an appointment as soon as possible
as Dr. Cantrell. Return if any worsening of symptoms of increased pain headache fever chills or any further concerns.
Interventions
Interventions:
*General Assessment Last Done: 02/18/25 11:44
*Nursing Disposition Last Done: 02/18/25 15:53
ED- Neurological Assessment Last Done: 02/18/25 11:44
ED-Skin Assessment Last Done: 02/18/25 11:44
Discharge Date and Time
Print Language: BELARUSIAN
[2025-02-18 12:14] VITALS: BP 142/78
[2025-02-18 13:26] LABS: Hematocrit 43.0 % (39.0-52.0); Hemoglobin 14.1 g/dL (13.0-18.0); Mean Corp Hgb Conc. 32.8 g/dL (33.0-37.0); Mean Corpuscular Volume 88.5 fL (80.0-94.0); Nucleated Red Blood Cells % 0 % (-); Platelet Count 292 10^3/uL (130-400); Red Cell Dist. Width 13.4 % (11.5-14.5)
[2025-02-18 13:42] LABS: ALT (SGPT) 21 U/L (0-50); AST (SGOT) 26 U/L (17-59); Albumin 4.4 g/dl (3.5-5.0); Alkaline Phosphatase 84 U/L (38-126); Blood Urea Nitrogen 14 mg/dl (9-20); Calcium 10.2 mg/dl (8.4-10.2); Carbon Dioxide 28 mmol/L (22-30); Chloride 106 mmol/L (98-107); Glucose 117 mg/dl (70-99); Potassium 4.6 mmol/L (3.5-5.1); Sodium 141 mmol/L (135-145); Total Protein 7.2 g/dl (6.3-8.2); eGFR > 60.00
[2025-02-18] MEDS: CIPRO 500 MG PO (15:46)
[2025-02-18 15:52] VITALS: BP 140/70
== END 2025-02-18 16:00 | disposition home or self-care (01) ==
LOC: EMR 09:31
PROVIDERS: Nurse Practitioner; EMERGENCY PHYSICIAN Family Medicine
DX: H60.92 Unspecified otitis externa, left ear (principal); R03.0 Elevated blood-pressure reading, without diagnosis of hypertension; E78.00 Pure hypercholesterolemia, unspecified; Z95.0 Presence of cardiac pacemaker; Z86.16 Personal history of COVID-19
CPT/HCPCS: 99284; 70487; 80053; 85025; Q9967

== ENCOUNTER 2025-03-08 13:07 | Inpatient (IN) | payer MEDICARE, OTHER, SELFPAY ==
[2025-03-08] VITALS (7 sets, daily range): BP systolic 117–149; BP diastolic 62–73; BMI 24.9; BMI 23.9
[2025-03-08 08:40] LABS: Hematocrit 43.7 % (39.0-52.0); Hemoglobin 14.0 g/dL (13.0-18.0); Mean Corp Hgb Conc. 32.0 g/dL (33.0-37.0); Mean Corpuscular Volume 89.7 fL (80.0-94.0); Nucleated Red Blood Cells % 0 % (-); Platelet Count 245 10^3/uL (130-400); Red Cell Dist. Width 13.8 % (11.5-14.5)
[2025-03-08 09:02] LABS: ALT (SGPT) 19 U/L (0-50); AST (SGOT) 25 U/L (17-59); Albumin 4.5 g/dl (3.5-5.0); Alkaline Phosphatase 82 U/L (38-126); Blood Urea Nitrogen 12 mg/dl (9-20); Calcium 9.9 mg/dl (8.4-10.2); Carbon Dioxide 27 mmol/L (22-30); Chloride 105 mmol/L (98-107); Glucose 166 mg/dl (70-99); Potassium 4.4 mmol/L (3.5-5.1); Sodium 141 mmol/L (135-145); Total Protein 7.2 g/dl (6.3-8.2); eGFR > 60.00
--- NOTE | 2025-03-08 09:52 | ED.GENMED ---
History of Present Illness
General
Chief Complaint: Facial Problem
Source: patient, records and spouse
Exam Limitations: none
Time Seen by Provider: 03/08/25 09:28
Nursing documentation reviewed up to this point in time: agreed with
History of Present Illness
History of Present Illness:
79-year-old male with a past medical history hyperlipidemia, diabetes, pacemaker who presents to the ER for evaluation of left facial pain. Patient has had a complicated recent course with left otitis externa and mastoiditis with osteomyelitis of
the skull base. He was admitted in December, cultures at that time grew Pseudomonas which had intermediate resistance to ciprofloxacin. He was seen in consultation with ENT and infectious disease and was ultimately discharged with a PICC line on IV
meropenem x 6 weeks which was completed on 01/23. It sounds like symptoms improved but never completely resolved, he returned to the ER on 02/09 with continued pain. He had a CT at that time which was reviewed with ENT ultimately felt to be
improving and he was discharged. He returned again with uncontrolled pain on 02/18, again had a CT which was stable and at that point was started on a 10-day course of oral ciprofloxacin with Ciprodex drops and a plan for ENT follow-up in the
office. He has an appointment tomorrow with Dr. Cantrell. He returns to the ER today because he feels his pain is not well-controlled. He says that he had been managing with Tylenol but over the past 24 hours this has not been sufficient to control
his pain, last night could not sleep due to pain in the left face/ear. He has had muffled hearing on and off but this has been chronic since onset. Not acutely changed. He denies any drainage from the ear. He denies fever or chills. His only
other symptom is a mild cough over the past week or so.
Past History
Past History
ED Past Medical History: Cancer (Prostate), Hypercholesterolemia and Other (COVID PNA 02/26/22 hospitalized for 6 days [place])
ED Past Surgical History: Appendectomy, Cardiac (Pacemaker) and Orthopedic
Social History
Tobacco: Non-smoker
Alcohol: Occasional
Personal:
Living: with family
Review of Systems
Review of Systems
All Other Systems: ROS reviewed and negative except as documented in HPI and ROS
Constitutional: Denies fever or chills
EENT: Reports other (Ear/facial pain)
Respiratory: Denies trouble breathing
Cardiac: Denies chest pain
ABD/GI: Denies abdominal pain
Neurological: Denies dizzy or headache
Phy Exam
Physical Exam
Physical Exam:
General: Awake, alert, oriented x3; no acute distress
Head: Normocephalic, atraumatic
Eyes: Conjunctiva normal, EOMI
Ears: Patient has some slight swelling of the left ear, left canal is clear without any sloughing or pus, left TM very slight erythema but no perforation, no effusion, nonbulging; right external ear appears normal, clear canal with no TM
abnormalities; he has no tenderness to the mastoid processes bilaterally; the left he does have some very mild preauricular tenderness
Throat: Airway intact, handling secretions
Neck: Trachea midline, supple without meningismus
Lungs: Clear to auscultation bilaterally, no wheezing, rales, rhonchi
Heart: Regular rate and rhythm, no murmurs, gallops, or rubs
Neuro: Grossly intact
Skin: No rash noted
Extremities: Warm well-perfused
Scores
Heart Failure Risk
Heart Failure Risk Score: Not Applicable
Heart Score for Chest Pain Patients
STEMI patient?: Not applicable
Withdrawal Assessment of Alcohol
Withdrawal Assessment Completed?: Not applicable
Course
Orders/Labs/Results
Orders:
Orders
03/08/25 08:29
Complete Blood Count/With Diff Urgent
Comprehensive Metabolic Panel Urgent
03/08/25 09:52
Ibuprofen [Motrin] 400 mg PO NOW STA
03/08/25 10:29
ENT CONSULT Urgent
Consulting Provider: Leslee Levin
Was physician already notified: Yes
INFECTIOUS DISEASE CONSULT Urgent
Consulting Provider: Roopa Marshall
Was physician already notified: Yes
03/08/25 10:31
Cefepime HCl [Maxipime] 2,000 mg IV NOW STA
Abnormal Lab Results
03/08/25
08:29
MCHC 32.0 L g/dL
(33.0-37.0)
Abs Immat Gran (auto) 0.1 H 10^3/uL
(0-0.05)
Absolute Neuts (auto) 7.3 H 10^3/uL
(1.4-6.5)
Absolute Monos (auto) 0.9 H 10^3/uL
(0.1-0.6)
Immature Gran % 0.8 H %
(0-0.5)
Lymphocytes % 15.7 L %
(20.5-51.1)
Glucose 166 H mg/dl
(70-99)
03/08/25 08:29
03/08/25 08:29
Vital Signs
Initial and Last Documented VS:
Initial Vital Signs
Temp Pulse Resp BP Pulse Ox
37.1 C 83 17 145/73 99
03/08/25 08:21 03/08/25 08:21 03/08/25 08:21 03/08/25 08:21 03/08/25 08:21
Last Documented Vital Signs
Temp Pulse Resp BP Pulse Ox
36.7 C 71 17 136/69 98
03/08/25 09:47 03/08/25 09:47 03/08/25 09:47 03/08/25 09:47 03/08/25 09:57
MDM/Problems Addressed
Differential Diagnosis Includes:
Mastoiditis, osteomyelitis, otitis externa, trigeminal neuralgia, TMJ dysfunction
MDM/Problems Addressed:
79-year-old male with history as noted, recent complicated course of left otitis externa, mastoiditis with osteomyelitis presents to the ER with continued left facial pain poorly controlled with Tylenol. Scheduled for ENT follow-up tomorrow. Has
already been treated with 6-week course of IV meropenem via PICC line completed 01/23 follow-up course of ciprofloxacin oral and otic drops completed on 02/28. Vital signs and exam are as above. Labs were sent off including a CBC and a
CMP�leukocytosis has resolved. Discussed with ENT who recommended initiating antibiotics once again. I feel he ultimately will need a gallium scan to evaluate for residual infection. We discussed with infectious disease for recommendations. Will
discuss with radiology regarding feasibility of emergent gallium scan.
Discussed with infectious disease who recommended admission to arrange for IV antibiotics. Recommended starting IV cefepime for now. Discussed with radiology�gallium not kept in house will need to be ordered for scan; order placed but will not
occur today. Discussed case with hospitalist for admission.
*Radiology
Radiology exam reviewed: radiology read reviewed (Reviewed CT reports from prior visits)
*Pulse Oximetry
SaO2: 98
Oxygen Mode of Delivery: Room air
Patient hypoxic: no (98%)
*Critical Care Note
Total Time (30-74mins, 75-104mins- exclusive of procedures): Not Applicable
Data Reviewed
Review of Other/Old Records Reveals: Labs, Records, Testing and Discharge Summary
Source: patient, records and spouse
Patient Management
Discussion with other providers: Hospitalist (Discussed with hospitalist) and Freight Brake Operator (Discussed with ENT, discussed with infectious disease, discussed with radiology)
Escalation/DeEscalation of care consider admission/obs:
Admission indicated
ED Attending Note
-
Portions of this chart may have been created with voice recognition software.� Occasional wrong word or��sound alike� substitutions may have occurred due to the inherent limitations of voice recognition software.
Discharge Plan
Departure
Patient Disposition: Admit
Date of Disposition: 03/08/25
Time of Disposition: 10:35
Admit to doctor: Darryl
Presentation/result/management discussed w/ accepting MD/DO: Hospitalist
Discharge Problem:
Facial pain
Prescriptions:
No Action
rosuvastatin 10 mg tablet
10 mg PO HS
M.V.I. Adult
1 tab PO DAILY
Pepcid AC
10 mg PO BID
Tylenol Arthritis
1,000 mg PO Q6H PRN (Reason: mild pain temp>100.4F)
ciprofloxacin-dexamethasone
4 drp LEFT EAR BID
Patient Comments:
Patient reportedly started a few days ago was to take for 7 days
hydroxychloroquine
200 mg PO DAILY
prednisone
10 mg PO DAILY
Rx Instructions:
Daily x 5 days to stop 12/15/2024
amlodipine 5 mg Tablet
5 mg PO DAILY 30 Days Qty: 30 0RF
gentamicin 0.3 % Drops
5 drp LEFT EAR TID 10 Days Qty: 150 0RF
meropenem 1 gram Recon Soln
1,000 mg IV Q8H 36 Days Qty: [id number] 0RF
Refresh Classic (PF) 1.4-0.6 % Dropperette
1 drops ophthalmic (eye) QIDPRN PRN (Reason: b/l dry eyes) 21 Days Qty: 84 0RF
Lactobac/Bifidobac [Visbiome]
2 cap PO DAILY 14 Days 0RF
ciprofloxacin HCl [Cipro] 500 mg tablet
500 mg PO BID Qty: 20 0RF
ciprofloxacin-dexamethasone 0.3-0.1 % drops,suspension
4 drp otic (ear) BID Qty: 7.5 0RF
Referrals:
Richelle Marley MD [Family Provider, Family Practice]
Interventions
Interventions:
*Risk Screen - Suicide Last Done: 03/08/25 08:23
*General Assessment Last Done: 03/08/25 08:23
*Neglect/Abuse Screening Last Done: 03/08/25 08:23
*ED- Fall Risk Assessment Last Done: 03/08/25 09:45
*ED COVID-19 Vaccine History Last Done: 03/08/25 08:23
*ED Influenza Vaccine History Last Done: 03/08/25 08:23
ED- Neurological Assessment Last Done: 03/08/25 09:50
ED-Skin Assessment Last Done: 03/08/25 09:50
Discharge Date and Time
Print Language: GUINEAN
[2025-03-08] MEDS: MOTRIN 400 MG PO (09:58)
[2025-03-08] MEDS: MAXIPIME 2000 MG IV ×2 (11:22→21:32)
--- NOTE | 2025-03-08 11:58 | HPS.HSE ---
Addendum entered and electronically signed by Reinaldo Conklin MD 03/08/25 14:22:
see update note for addendum
Original Note:
Family Physician
-
Family Physician: Richelle Marley
Chief Complaint
-
Left ear pain
History of Present Illness
79-year-old male presented to the ER reporting pain in the left ear, and in the preauricular and postauricular region. He has a past medical history of hypertension, hyperlipidemia, prediabetes, prostate cancer s/p radiation, rheumatoid arthritis,
syncopal episode with pacemaker evaluation. Patient was admitted in in December for left otitis externa/mastoiditis, osteomyelitis of the skull base and he was discharged on IV meropenem X 6 weeks�last dose on 01/23/2025. Interim he was seen in
the ER twice for ear pain, stable head CT, and he was sent on 10-day course of oral ciprofloxacin and Ciprodex drops.�Last dose on 02/27/2025. Today he returns back continues ongoing pain. Muffled hearing in the left ear, patient used to wear
hearing aids and he discontinued since October. No hearing loss, purulent drainage from the ear. Patient denies fever/chills.
Medical History
Past Medical History
Past Medical History: Reports Other (Hypertension, hyperlipidemia, prediabetes, prostate cancer s/p radiation, rheumatoid arthritis)
Past Surgical History: Reports Other (Appendectomy, bilateral knee replacement, cataract extraction)
Social History
Tobacco: Non-smoker
Alcohol: None
Drug: None
Personal:
Living: With Family
Employment: Retired
Family History
Family History: Not pertinent
Allergies / Home Medications
Allergies reflects when Allergies were last updated in [facility].
Home Medications with original date entered in [facility]
Allergy/Medication List:
Allergies
Allergy/AdvReac Type Severity Reaction Status Date / Time
linezolid Allergy dizziness Verified 03/08/25 08:22
meropenem Allergy Rash Verified 03/08/25 08:22
tramadol Allergy Unknown Verified 03/08/25 08:22
gabapentin AdvReac 'Got Verified 03/08/25 08:22
spacey'
sulfamethoxazole (From AdvReac 'Got Verified 03/08/25 08:22
Bactrim) spacey'
trimethoprim (From Bactrim) AdvReac 'Got Verified 03/08/25 08:22
spacey'
Home Medications
rosuvastatin 10 mg tablet 10 mg PO HS High cholesterol 04/01/22
acetaminophen 325 mg tablet (Tylenol) 650 mg PO Q6HPRN PRN mild pain ##0 12/12/24
famotidine 20 mg tablet (Pepcid) 10 mg PO BID Gastrointestinal Issue ##0 12/12/24
hydroxychloroquine 200 mg tablet (Plaquenil) 200 mg PO DAILY Rheumatoid Arthritis ##0 12/12/24
therapeutic multivitamin 1 tab PO DAILY Supplement ##0 12/12/24
amlodipine 5 mg tablet 5 mg PO DAILY high blood pressure 30 days #30 tabs 12/17/24
Lactobac no.2-Bifidobac no.1-S. thermo 112.5 billion cell capsule (Visbiome) 1 cap PO DAILY 03/08/25
polyvinyl alcohol-povidone (PF) 1.4 %-0.6 % eye drops in a dropperette (Refresh Classic (PF)) 1 drops BOTH EYES HS 03/08/25
Review of Systems
-
A 12 point ROS was completed and negative except as noted: Yes
Physical Exam
Vital Signs
Vital Signs
Temp Pulse Resp BP Pulse Ox
98.4 F 75 16 129/62 95
03/08/25 11:20 03/08/25 11:20 03/08/25 11:20 03/08/25 11:20 03/08/25 11:20
Physical Exam
General: Well Developed, Well Nourished and No Apparent Distress
HEENT: NormoCephalic, Atraumatic and Other (Examination of the left ear-tenderness on the tragus, mastoid tenderness. External ear canal with slough and erythema. Tympanic membrane with erythema no perforations. Right ear-external ear normal,
external ear canal normal, tympanic membrane intact.)
Respiratory: Clear
Cardiac: S1/S2 and Regular Rhythm
GI: Soft, Non Tender, Non Distended and Normal Bowel Sounds
Laboratory Results
-
03/08/25 08:
03/08/25:
Laboratory Results
Total Bilirubin 0.9 mg/dl (0.2-1.3) 03/08/25
AST 25 U/L (17-59) 03/08/25:
ALT 19 U/L (0-50) 03/08/25:
Alkaline Phosphatase 82 U/L (38-126) 03/08/25 08:29
Impression/Plan
-
IMPRESSION:
79-year-old male presenting with left-sided ear pain. Labs unremarkable, vital stable.
PLAN:
#Left otitis externa
#Left-sided mastoiditis
#Osteomyelitis of the skull base
Patient is afebrile, normal white count
Vitals stable
ENT , ID consulted by the ER
Plan on gallium scan to evaluate for residual infection
Gallium scan ordered by the ED
History of Pseudomonas aeruginosa from wound culture during his prior admission
Will continue cefepime
Adequate pain control
Monitor CBC, CMP
#Hyperlipidemia
Continue rosuvastatin
#Elevated glucose
History of prediabetes
Not on home medications
Will monitor for now, add SSI if needed.
#Hypertension
Continue amlodipine
#Rheumatoid arthritis
Continue hydroxychloroquine
#GERD
Continue Pepcid
DVT prophylaxis�Lovenox
Diet�low-sodium
Full code
--- NOTE | 2025-03-08 12:32 | CM ---
territory sales manager reviewed patient's chart and met with patient and spouse, patient lives with spouse in a 2 story home, with one step to enter, patient has a 1st floor set up with bed and bathroom, patient was discharged from [facility] in
December to home with IV ABX, patient was set up with [facility] home infusion and [facility] visiting nurses, Patient has a cane and walker in home that he does not use, per patient he is independent with adl's and ambulation.
PCP: Richelle Marley
Pharmacy: [facility] in [place].
--- NOTE | 2025-03-08 14:12 | W.PN.UPDATE ---
Update Note
Progress Note Update
I have personally supervised the history, physical exam, medical decision-making, and care plan for this patient in conjunction with the�resident. I have reviewed and discussed the�resident�s documentation and findings. I confirm that this note
accurately reflects my supervision and input in the care of this patient
Comment: 79 y/o M, hx of L otitis externa/Mastoiditis/temporal bone osteomyelitis presents back to ER for ongoing mastoid/ear pain. He previously completed a 6 week course of Edwina/Zosyn per ID along with oral/otic Cipro. Most recent CT on 02/18
showed left otitis externa. ENT and ID were consulted. ENT requested Gallium scan which radiology will perform once agent is available. IV Cefepime was started.
Exam
General: No Apparent Distress
HEENT: Normocephalic, Atraumatic and Other (tenderness to palpation of left jaw, left ear)
Respiratory: Clear to Auscultation
Cardiac: Regular Rhythm
GI: Soft and Nontender
Musculoskeletal: no edema
Skin: Warm and Dry
Neuro: Awake, Alert, Oriented
Psych: Calm
Assessment:
Recurrent L mastoid/ear pain
Associated Left facial palsy
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
- ENT consulted. Gallium scan being arranged with Radiology
- ID consulted; start Cefepime
- continue pain control
Essential Hypertension
- continue amlodipine
Hyperlipidemia
- continue Crestor
Rheumatoid arthritis
- continue Plaquenil 200 mg daily
GERD
- continue famotidine
Pacemaker placement
History of prostate cancer s/p XRT
DVT ppx: Lovenox
Code: Full
--- NOTE | 2025-03-08 14:46 | PTCARENOTE ---
03/08- Patient oriented and transferred to unit without issue. AAOX3. Teley, currently NSR. Patient c/o 11/20 pain in L-jaw. L-jaw not swollen, mildly tender to touch, no open injuries or wounds observed. Will administer pain medication as ordered
once verified by Pharmacy.
--- NOTE | 2025-03-08 15:28 | CON.ID ---
Consultation
-
Date/Time Consultation Requested: 03/08/25 10:29
Date/Time Consultation Performed: 03/08/25 15:29
Requesting Provider: Dr Larson
Performing Provider: Dr Marshall
Reason for Consultation: otitis externa/osteomyelitis
Chief Complaint / Past History
Chief Complaint
left ear pain
History of Present Illness
Mr iLu is a 79 year old male with RA on plaquenil who last presented here 12/13 for acute onset of left facial droop and numbness. He had a 5 week history of pain behind the left ear, PCP prescribed eardrops without improvement. He was seen by
ENT and cultures were negative, he was prescribed cipro-dex eardrops without improvement. Then 12/13 he was noted to have L facial droop. He was diagnosed with L otitis externa/mastoiditis, osteomyelitis of the base of the skull due to Pseudomonas
with intermediate resistance to ciprofloxacin, he was treated with meropenem x6 weeks through 01/23/25. Since then he has returned to the ER 02/[address] showing stable moderate thickening of the Left external ear cartilage and a small amount of
fluid in the left mastoid air cell, Dr Connelly recommended supportive care, he returned to the ER again 02/[address] scan was unchanged, case was discussed with Dr Perez who recommended oral ciprofloxacin and ciprodex drops - he completed this
course 02/28; he did feel that he had some improvement with these. Today he represents for left ear/facial pain which began, he indicates his worst area is preauricular though there is a focal point of tenderness over the mastoid, no drainage from
the ear.
Note a remote history of rituximab use 07/2021
Since arrival here he has been afebrile, bp hypertensive, wbc 10.1, hgb 14, plt 245, no left shift, na 141, cr 0.8, a gallium scan is being arranged with radiology. Cefepime started at my recommendation
Past History
Additional Past Medical History:
Hypertension, hyperlipidemia, prediabetes, prostate cancer s/p radiation, rheumatoid arthritis
Additional Past Surgical History:
Appendectomy, bilateral knee replacement, cataract extraction
Allergy History:
linezolid Allergy (Verified 03/08/25 08:22)
dizziness
meropenem Allergy (Verified 03/08/25 08:22)
Rash
tramadol Allergy (Verified 03/08/25 08:22)
Unknown
gabapentin Adverse Reaction (Verified 03/08/25 08:22)
'Got spacey'
sulfamethoxazole (From Bactrim) Adverse Reaction (Verified 03/08/25 08:22)
'Got spacey'
trimethoprim (From Bactrim) Adverse Reaction (Verified 03/08/25 08:22)
'Got spacey'
Medications Reviewed: Yes
Social History
Tobacco: Non-Smoker
Alcohol: None
Drug: None
Family History
Family History: Not Pertinent
Review of Systems
Vital Signs
Temp Pulse Resp BP Pulse Ox
99.2 F 72 18 149/71 99
03/08/25 14:31 03/08/25 14:31 03/08/25 14:31 03/08/25 14:31 03/08/25 14:31
Physical Exam
Physical Exam
Constitutional: No Acute Distress
Head: Other (swelling of the left external ear)
Cardiovascular: Regular Rate and S1/S2; Negative Murmur or Rub
Pulmonary: Clear and Symmetric; Negative Wheezes, Rales or Rhonchi
Gastrointestinal: Soft, Non Tender, Non Distended and Normal Bowel Sounds
Skin: Warm and Dry; Negative Rash or Jaundice
Neurological: Other (facial movements are symmetrical)
Lab / Diagnostic Study Results
03/08/25 08:29
03/08/25 08:29
Abs Immat Gran (auto) 0.1 10^3/uL (0-0.05) H 03/08/25 08:29
Absolute Neuts (auto) 7.3 10^3/uL (1.4-6.5) H 03/08/25 08:29
Absolute Lymphs (auto) 1.6 10^3/uL (1.2-3.4) 03/08/25 08:29
Absolute Monos (auto) 0.9 10^3/uL (0.1-0.6) H 03/08/25 08:29
Absolute Basos (auto) 0.1 10^3/uL (0-0.2) 03/08/25 08:29
Immature Gran % 0.8 % (0-0.5) H 03/08/25 08:29
Neutrophils % 72.0 % (42.2-75.2) 03/08/25 08:29
Lymphocytes % 15.7 % (20.5-51.1) L 03/08/25 08:29
Monocytes % 8.7 % (1.7-9.3) 03/08/25 08:29
Eosinophils % 2.1 % (0-6) 03/08/25 08:29
Basophils % 0.7 % (0-2) 03/08/25 08:29
Assessment / Plan
L Sided Ear Pain
hx of L mastoiditis/temporal bone osteomyelitis,
hx of chronic otitis externa
- s/p 6 weeks of IV meropenem final dose 01/23/25
- ENT to please obtain ear culture if possible - previously with Pseudomonas resistant to ciprofloxacin
- cefepime for present
- gallium scanning is being arranged
[2025-03-08] MEDS: NORVASC 5 MG PO (16:11)
[2025-03-08] MEDS: PEPCID 10 MG PO (16:11)
[2025-03-08] MEDS: DILAUDID 0.5 MG IV (16:12)
[2025-03-08 16:26] LABS: Glucose - Point of Care 110 mg/dl (70-99)
--- NOTE | 2025-03-08 16:50 | W.PN.ENT ---
Today's Communication
-
Await gallium scan, pain control, continue IV abx per ID while cultures are pending.
Impression / Plan
-
The patient is a 79 year old man with RA and ongoing left otalgia despite treatment for 6 weeks with IV meropenem. He has had multiple CT scans that appear relatively stable. I have recommended a gallium scan to assess for active infection and
appreciate ID recs concerning antibiotic choice. A culture was taken, but not sure it will yield much without any active otorrhea. ENT to follow.
Subjective Data
-
The patient is a 79 year old man with rheumatoid arthritis and h/o radiation for prostate Ca who presented to the ER for worsening left otalgia. He was previously treated as an outpatient and then inpatient for left MARTHA with skull base involvement.
He was discharged on IV meropenem for 6 weeks of therapy as cultures were psudomonas intermediate response to fluoroquinolones. He has been seen in the ER twice again for ear pain and CT scan has not shown progression. He was treated with outpatient
cipro PO and drops but presents again with severe left otalgia. He denies purulent drainage but does feel like his hearing is decreased. He did have facial droop at one point which has resolved.
Objective Data
-
Vital Signs
Temp Pulse Resp BP Pulse Ox
99.2 F 72 18 149/71 99
03/08/25 14:31 03/08/25 14:31 03/08/25 14:31 03/08/25 14:31 03/08/25 14:31
Intake & Output
03/07/25 03/08/25 03/09/25
06:59 06:59 06:59
Intake:
Oral fluids 120 / 120
Other:
Number of unmeasured voidings 2
Lab Results
03/08/25 08:29
03/08/25 08:29
Calcium 9.9 mg/dl (8.4-10.2) 03/08/25 08:29
Total Bilirubin 0.9 mg/dl (0.2-1.3) 03/08/25 08:
AST 25 U/L (17-59) 03/08/25 08:
ALT 19 U/L (0-50) 03/08/25 08:
Alkaline Phosphatase 82 U/L (38-126) 03/08/25 08:
Physical Exam
-
GEN: NAD, Alert and oriented
HEENT: EACs clear, left TM appears to have an effusion, no erythema. There is a buldge or polyp in the lateral posterior EAC. Culture is nonetheless taken although no otorrhea is present.
Neuro: CN VII appears symmetric.
Data Reviewed
-
Micro Results: Report Reviewed
--- NOTE | 2025-03-08 16:53 | PTCARENOTE ---
03/08- Patient states he began feeling nauseous and 'woozy' after administration of Dilaudid for pain. He states he was taking tylenol at home and got Motrin in the ER, and he would like the Motrin back. He states hx of galstones but denies any
other GI issues. Patient has vomited in a blue bag. VSS. Color=pale/dry with +PulsesX4; RR=20, Lungs CTA BL. Notified Physician. Administered Zofran as ordered. Will continue to monitor and await further orders.
[2025-03-08] MEDS: ZOFRAN 4 MG IV (17:00)
[2025-03-08] MEDS: TORADOL 15 MG IV (19:42)
[2025-03-08] MEDS: PEPCID PO (19:50)
[2025-03-08] MEDS: REFRESH EYE DROPS (PF) 1 DROPS BOTH EYES (21:31)
[2025-03-08] MEDS: CRESTOR 10 MG PO (21:31)
[2025-03-08] MEDS: STERILE WATER FOR INJECTION 10 ML IV (21:32)
[2025-03-08 21:43] LABS: Glucose - Point of Care 146 mg/dl (70-99)
[2025-03-09] MEDS: TORADOL 15 MG IV ×3 (01:42→15:37)
[2025-03-09 03:00] VITALS: BP 103/55
[2025-03-09 07:10] VITALS: BP 143/65
[2025-03-09 07:23] LABS: Glucose - Point of Care 94 mg/dl (70-99)
[2025-03-09 08:02] LABS: Hematocrit 40.7 % (39.0-52.0); Hemoglobin 12.8 g/dL (13.0-18.0); Mean Corp Hgb Conc. 31.4 g/dL (33.0-37.0); Mean Corpuscular Volume 87.3 fL (80.0-94.0); Nucleated Red Blood Cells % 0 % (-); Platelet Count 229 10^3/uL (130-400); Red Cell Dist. Width 13.7 % (11.5-14.5)
[2025-03-09 08:31] LABS: ALT (SGPT) 15 U/L (0-50); AST (SGOT) 19 U/L (17-59); Albumin 3.7 g/dl (3.5-5.0); Alkaline Phosphatase 75 U/L (38-126); Blood Urea Nitrogen 10 mg/dl (9-20); Calcium 9.4 mg/dl (8.4-10.2); Carbon Dioxide 29 mmol/L (22-30); Chloride 105 mmol/L (98-107); Estimated Creatinine Clearance 66 ml/min; Glucose 97 mg/dl (70-99); Potassium 4.5 mmol/L (3.5-5.1); Sodium 140 mmol/L (135-145); Total Protein 6.1 g/dl (6.3-8.2); eGFR > 60.00
[2025-03-09 09:14] LABS: Glycohemoglobin (HgbA1c) 6.3 % (4.0-5.9)
[2025-03-09] MEDS: PLAQUENIL 200 MG PO (09:14)
[2025-03-09] MEDS: VISBIOME 1 CAP PO (09:14)
[2025-03-09] MEDS: THERAGRAN 1 TABLET PO (09:15)
[2025-03-09] MEDS: PEPCID 10 MG PO ×2 (09:15→20:55)
[2025-03-09] MEDS: NORVASC 5 MG PO (09:16)
--- NOTE | 2025-03-09 10:18 | W.PN.HOSP.TC ---
Today's Communication/Plan
-
await Gallium scan
continue IV Abx; follow culture
pain control
appreciate ID/ENT
Assessment / Plan
Assessment / Plan
Assessment:
Recurrent L mastoid/ear pain
Associated Left facial palsy
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
- ENT following. Gallium scan being arranged with Radiology; agent being ordered and 2 part Scan on Sunday and Sunday
- ID following; continue Cefepime
- continue pain control; NSAIDs or Tylenol. Had nausea/vomiting with opiates.
Essential Hypertension
- continue amlodipine
Hyperlipidemia
- continue Crestor
Rheumatoid arthritis
- continue Plaquenil 200 mg daily
GERD
- continue famotidine
Pacemaker placement
History of prostate cancer s/p XRT
Pre-diabetes
- A1c 6.3%; diet controlled per patient
DVT ppx: Lovenox
Code: Full
Anticipated Discharge: > 48 hours
Subjective/Interval History
-
Date of Service: March 09, 2025
resting comfortably, no complaints at present
Objective Data
-
Labs:
Laboratory Results
03/09/25
07:11
WBC 7.1
Hgb 12.8 L
Hct 40.7
Plt Count 229
Sodium 140
Potassium 4.5
Chloride 105
Carbon Dioxide 29
BUN 10
Creatinine 0.8
Glucose 97
Calcium 9.4
Total Bilirubin 0.5
AST 19
ALT 15
Alkaline Phosphatase 75
Vital Signs:
Vital Signs
Temp Pulse Resp BP Pulse Ox
98.1 F 69 18 143/65 100
03/09/25 07:10 03/09/25 07:10 03/09/25 07:10 03/09/25 07:10 03/09/25 07:10
I&O
03/08/25 03/09/25 03/10/25
06:59 06:59 06:59
Intake Total 120 / 120
Balance 120 / 120
Physical Exam
-
General: No Apparent Distress
HEENT: Normocephalic, Atraumatic and Other (swelling of the left external ear))
Respiratory: Clear to Auscultation; Negative Wheezes or Rales
Cardiac: Regular Rhythm and S1/S2
GI: Soft and Nontender
Genito-urinary: No Costovertebral Tender
Neuro: AO x 3
Psych: Calm
Data Reviewed
-
Total Time Spent with Patient (in minutes): 42
Labs: Labs Reviewed by me
[2025-03-09 11:09] VITALS: BP 112/65
[2025-03-09] MEDS: MAXIPIME 2000 MG IV ×2 (11:10→21:01)
[2025-03-09] MEDS: STERILE WATER FOR INJECTION 10 ML IV ×2 (11:10→21:02)
--- NOTE | 2025-03-09 12:28 | W.PN.ENT ---
Today's Communication
-
ct scan reviewed
Impression / Plan
-
The patient is a 79 year old man with RA and ongoing left otalgia despite treatment for 6 weeks with IV meropenem. He has had multiple CT scans that appear relatively stable. I have recommended a gallium scan to assess for active infection and
appreciate ID recs concerning antibiotic choice. A culture was taken, but not sure it will yield much without any active otorrhea. ENT to follow.
Await Gallium scan results- ?post Neville's palsy neuralgia vs TMJ vs osteomyelitis
Subjective Data
-
The patient is a 79 year old man with rheumatoid arthritis and h/o radiation for prostate Ca who presented to the ER for worsening left otalgia. He was previously treated as an outpatient and then inpatient for left MARTHA with skull base involvement.
He was discharged on IV meropenem for 6 weeks of therapy as cultures were psudomonas intermediate response to fluoroquinolones. He has been seen in the ER twice again for ear pain and CT scan has not shown progression. He was treated with outpatient
cipro PO and drops but presents again with severe left otalgia. He denies purulent drainage but does feel like his hearing is decreased. He did have facial droop at one point which has resolved.
Objective Data
-
Vital Signs
Temp Pulse Resp BP Pulse Ox
97.8 F 68 18 112/65 98
03/09/25 11:09 03/09/25 11:09 03/09/25 11:09 03/09/25 11:09 03/09/25 11:09
Intake & Output
03/08/25 03/09/25 03/10/25
06:59 06:59 06:59
Intake:
Oral fluids 120 / 120
Other:
Number of unmeasured voidings 2
Number of approximated LARGE 1
amounts of urine
Lab Results
03/09/25 07:11
03/09/25 07:11
Calcium 9.4 mg/dl (8.4-10.2) 03/09/25 07:11
Total Bilirubin 0.5 mg/dl (0.2-1.3) 03/09/25 07:11
AST 19 U/L (17-59) 03/09/25 07:11
ALT 15 U/L (0-50) 03/09/25 07:11
Alkaline Phosphatase 75 U/L (38-126) 03/09/25 07:11
ct scan shows left external ear is patent but mastoid is sclerotic form past infections of middle ear/mastoid
Physical Exam
-
pt off floor getting Gallium scan
Data Reviewed
-
Radiology Results: Report Reviewed
[2025-03-09 15:28] VITALS: BP 130/32
--- NOTE | 2025-03-09 16:12 | W.PN.ID1 ---
Date of Service
Date of Service: March 09, 2025
Today's Communication
Continue antibiotics.
Assessment / Plan
L Sided Ear Pain
hx of L mastoiditis/temporal bone osteomyelitis,
hx of chronic otitis externa
- s/p 6 weeks of IV meropenem final dose 01/23/25
- ENT has obtained ear culture
- previously with Pseudomonas resistant to ciprofloxacin
- Continue with cefepime
- gallium scan pending
����������������������������������������������������������
Chief Complaint
-: Other (Left ear pain)
Subjective / Review of Systems
Patient seen and examined. Reports ongoing ear pain.
Review of Systems: No Fever and No Chills
Vital Signs / Physical Exam
Vital Signs
Vital Signs
Temp Pulse Resp BP Pulse Ox
97.6 F 83 18 130/32 95
03/09/25 15:28 03/09/25 15:28 03/09/25 15:28 03/09/25 15:28 03/09/25 15:28
Physical Exam
Constitutional: No Acute Distress
Head: Other (left mastoid tenderness)
Cardiovascular: Regular Rate and S1/S2; Negative S3/S4
Pulmonary: Clear
Gastrointestinal: Soft and Non Tender
Extremities: Negative Edema
Neurological: Awake and Alert
Objective Data
Lab Data
Lab Results
03/09/25 07:11
03/09/25 07:11
Estimated Creat Clear 66 ml/min 03/09/25 07:11
Total Bilirubin 0.5 mg/dl (0.2-1.3) 03/09/25 07:11
AST 19 U/L (17-59) 03/09/25 07:11
ALT 15 U/L (0-50) 03/09/25 07:11
Alkaline Phosphatase 75 U/L (38-126) 03/09/25 07:11
Most recent labs reviewed.
Micro Results:
03/08/25 17:09 Wound Culture - Pending
Face - Left Gram Stain - Preliminary
03/08/25 17:09 Anaerobic Culture - Pending
Face - Left
[2025-03-09 19:36] VITALS: BP 121/71
[2025-03-09] MEDS: REFRESH EYE DROPS (PF) 1 DROPS BOTH EYES (21:00)
[2025-03-09] MEDS: CRESTOR 10 MG PO (21:00)
[2025-03-09 23:26] VITALS: BP 121/74
[2025-03-10 03:14] VITALS: BP 130/64
[2025-03-10] MEDS: TORADOL 15 MG IV ×4 (03:56→23:16)
[2025-03-10 08:01] LABS: Hematocrit 39.4 % (39.0-52.0); Hemoglobin 12.8 g/dL (13.0-18.0); Mean Corp Hgb Conc. 32.5 g/dL (33.0-37.0); Mean Corpuscular Volume 87.8 fL (80.0-94.0); Platelet Count 230 10^3/uL (130-400); Red Cell Dist. Width 13.5 % (11.5-14.5)
[2025-03-10 08:22] VITALS: BP 136/70
[2025-03-10 08:31] LABS: Blood Urea Nitrogen 18 mg/dl (9-20); Calcium 9.2 mg/dl (8.4-10.2); Carbon Dioxide 26 mmol/L (22-30); Chloride 103 mmol/L (98-107); Estimated Creatinine Clearance 59 ml/min; Glucose 106 mg/dl (70-99); Potassium 4.3 mmol/L (3.5-5.1); Sodium 139 mmol/L (135-145); eGFR > 60.00
[2025-03-10] MEDS: PLAQUENIL 200 MG PO (09:02)
[2025-03-10] MEDS: NORVASC 5 MG PO (09:02)
[2025-03-10] MEDS: PEPCID 10 MG PO ×2 (09:03→20:12)
[2025-03-10] MEDS: VISBIOME 1 CAP PO (09:03)
[2025-03-10] MEDS: THERAGRAN 1 TABLET PO (09:04)
[2025-03-10] MEDS: MAXIPIME 2000 MG IV ×2 (09:16→21:57)
[2025-03-10] MEDS: STERILE WATER FOR INJECTION 10 ML IV ×2 (09:16→21:57)
[2025-03-10 11:00] VITALS: BP 133/65
--- NOTE | 2025-03-10 12:47 | W.PN.ID1 ---
Date of Service
Date of Service: March 10, 2025
Today's Communication
Continue antibiotics. Await gallium scan
Assessment / Plan
(L) Sided Ear Pain
Hx of L mastoiditis/temporal bone osteomyelitis
- s/p 6 weeks of IV meropenem; final dose 01/23/25
hx of chronic otitis externa
Recommendations:
Ear canal culture only with coag negative staph
- previously with Pseudomonas resistant to ciprofloxacin
- Continue with cefepime for today.
- gallium scan pending
����������������������������������������������������������
Chief Complaint
-: Other (Left ear pain)
Subjective / Review of Systems
Patient seen and examined. Reports ongoing but intermittent left ear discomfort both in and outside
Review of Systems: No Fever and No Chills
Vital Signs / Physical Exam
Vital Signs
Vital Signs
Temp Pulse Resp BP Pulse Ox
98.6 F 69 18 133/65 97
03/10/25 11:00 03/10/25 11:00 03/10/25 11:00 03/10/25 11:00 03/10/25 11:00
Physical Exam
Constitutional: No Acute Distress
Head: Other (left mastoid tenderness)
Oropharyngeal: Other (No TMJ tenderness to palpation)
Cardiovascular: Regular Rate and S1/S2; Negative S3/S4
Pulmonary: Clear
Gastrointestinal: Soft and Non Tender
Extremities: Negative Edema
Neurological: Awake and Alert
Objective Data
Lab Data
Lab Results
03/10/25 07:20
03/10/25 07:20
Estimated Creat Clear 59 ml/min 03/10/25 07:20
Total Bilirubin 0.5 mg/dl (0.2-1.3) 03/09/25 07:11
AST 19 U/L (17-59) 03/09/25 07:11
ALT 15 U/L (0-50) 03/09/25 07:11
Alkaline Phosphatase 75 U/L (38-126) 03/09/25 07:11
Most recent labs reviewed.
Micro Results:
03/08/25 17:09 Anaerobic Culture - Preliminary
Face - Left Culture pending. Anaerobic cultures are examined after 3
days incubation. Additional information to follow.
03/08/25 17:09 Wound Culture - Preliminary
- Few Coag neg staph seen.
Face - Left Gram Stain - No WBC's, No organisms
--- NOTE | 2025-03-10 12:48 | W.PN.UPDATE ---
Update Note
Progress Note Update
Still c/o ear pain
hearing seems off a little on left
recent CT shows sclerotic L mastoid, some fluid in mastoid
No obvious middle ear effusion, though not well visualized
PE - Tenderness of palpation of tragus and TMJ
Canal with mild debris but no swelling, and TM seems clear
Tuning forks suggest a mild conductive loss on left
A/P Otalgia
May be TMJ or neuralgia, although some canal debris and possible lingering otitis externa
Await results of gallium scan
If positive, cont IV antibx, may benefit from addition of ear drops ( can use gentamycin eye drops in ear), did not order
If negative, would treat as more of an inflammatory process, heat
will follow
--- NOTE | 2025-03-10 13:42 | W.PN.HOSP.TC ---
Today's Communication/Plan
-
await Gallium scan results
continue IV Abx
pain control - increase Toradol
f/u ENT/ID recs
Assessment / Plan
Assessment / Plan
Assessment:
Recurrent L mastoid/ear pain
Associated Left facial palsy
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
- ENT following. Gallium scan ordered; agent injected Sunday, 2 day scan over Sunday and Sunday per Radiology
- ID following; continue Cefepime
- continue pain control; NSAIDs or Tylenol. Had nausea/vomiting with opiates.
Essential Hypertension
- continue amlodipine
Hyperlipidemia
- continue Crestor
Rheumatoid arthritis
- continue Plaquenil 200 mg daily
GERD
- continue famotidine
Pacemaker placement
History of prostate cancer s/p XRT
Pre-diabetes
- A1c 6.3%; diet controlled per patient
DVT ppx: Lovenox
Code: Full
Anticipated Discharge: > 48 hours
Subjective/Interval History
-
Date of Service: March 10, 2025
reports ear pain, small grainy/gravelly drainage from ear canal
Objective Data
-
Labs:
Laboratory Results
03/10/25
07:20
WBC 8.3
Hgb 12.8 L
Hct 39.4
Plt Count 230
Sodium 139
Potassium 4.3
Chloride 103
Carbon Dioxide 26
BUN 18
Creatinine 0.9
Glucose 106 H
Calcium 9.2
Vital Signs:
Vital Signs
Temp Pulse Resp BP Pulse Ox
98.6 F 69 18 133/65 97
03/10/25 11:00 03/10/25 11:00 03/10/25 11:00 03/10/25 11:00 03/10/25 11:00
I&O
03/09/25 03/10/25 03/11/25
06:59 06:59 06:59
Intake Total 120 / 120 1680 / 1680
Output Total 100 / 100
Balance 120 / 120 1580 / 1580
Physical Exam
-
General: No Apparent Distress
HEENT: Normocephalic and Atraumatic
Respiratory: Negative Wheezes
Cardiac: Regular Rhythm and S1/S2
GI: Soft and Nontender
Genito-urinary: No Costovertebral Tender
Neuro: AO x 3
Psych: Calm
Data Reviewed
-
Total Time Spent with Patient (in minutes): 41
Labs: Labs Reviewed by me
--- NOTE | 2025-03-10 15:04 | CM ---
CM reviewed chart, reviewed with Hospitalist.
Patient remains on IV antibiotics.
Await Gallium scan results
ENT following.
Care ongoing, CM will continue to follow for all d/c planning needs.
Plan; home no needs anticipated watch for IV antibiotic needs
[2025-03-10 16:00] VITALS: BP 145/73
[2025-03-10 19:19] VITALS: BP 143/76
[2025-03-10] MEDS: CRESTOR 10 MG PO (21:56)
[2025-03-10] MEDS: REFRESH EYE DROPS (PF) 1 DROPS BOTH EYES (21:57)
[2025-03-10 23:28] VITALS: BP 158/70
[2025-03-11 03:10] VITALS: BP 123/74
[2025-03-11 07:00] VITALS: BP 112/66
[2025-03-11 07:47] LABS: Hematocrit 40.7 % (39.0-52.0); Hemoglobin 13.4 g/dL (13.0-18.0); Mean Corp Hgb Conc. 32.9 g/dL (33.0-37.0); Mean Corpuscular Volume 85.7 fL (80.0-94.0); Platelet Count 261 10^3/uL (130-400); Red Cell Dist. Width 13.5 % (11.5-14.5)
[2025-03-11] MEDS: PEPCID 10 MG PO ×2 (07:56→20:22)
[2025-03-11] MEDS: VISBIOME 1 CAP PO (07:56)
[2025-03-11] MEDS: PLAQUENIL 200 MG PO (07:56)
[2025-03-11] MEDS: THERAGRAN 1 TABLET PO (07:56)
[2025-03-11] MEDS: TORADOL 15 MG IV ×3 (07:58→21:37)
[2025-03-11 08:25] LABS: Blood Urea Nitrogen 14 mg/dl (9-20); Calcium 9.5 mg/dl (8.4-10.2); Carbon Dioxide 25 mmol/L (22-30); Chloride 107 mmol/L (98-107); Estimated Creatinine Clearance 66 ml/min; Glucose 108 mg/dl (70-99); Potassium 4.4 mmol/L (3.5-5.1); Sodium 140 mmol/L (135-145); eGFR > 60.00
[2025-03-11] MEDS: NORVASC 5 MG PO (08:45)
[2025-03-11] MEDS: MAXIPIME 2000 MG IV ×2 (09:38→21:39)
[2025-03-11] MEDS: STERILE WATER FOR INJECTION 10 ML IV ×2 (09:38→21:39)
--- NOTE | 2025-03-11 13:41 | W.PN.HOSP.TC ---
Today's Communication/Plan
-
see bold
Assessment / Plan
Assessment / Plan
Assessment:
Recurrent L mastoid/ear pain
Associated Left facial palsy
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
- ENT following. Gallium scan ordered; agent injected Sunday, 2 day scan over Sunday and Sunday per Radiology
- ID following; continue Cefepime, follow-up on gallium scan results
- continue pain control; NSAIDs or Tylenol. Had nausea/vomiting with opiates.
Essential Hypertension
- continue amlodipine
Hyperlipidemia
- continue Crestor
Rheumatoid arthritis
- continue Plaquenil 200 mg daily
GERD
- continue famotidine
Pacemaker placement
History of prostate cancer s/p XRT
Pre-diabetes
- A1c 6.3%; diet controlled per patient
DVT ppx: SQ Lovenox
Code: Full
Total time spent to see the patient on the floor, examine the patient, review data and lab results, discuss treatment plan with patient, nursing staff around 35 minutes.
Physical Exam
General: No acute distress
HEENT: Normocephalic, Atraumatic, EOMI, MMM
Swelling of left external noted mastoid tenderness noted
Respiratory: Clear to Auscultation bilaterally
Cardiac: Normal S1/S2, Regular Rate and Rhythm
GI: Soft, Nontender, Nondistended, Normal Bowel Sounds
Extremities: No Clubbing, Cyanosis, or Edema
Neuro: Nonfocal/Grossly Intact
Psych: Calm, Cooperative
Derm: No Visible lesions
Anticipated Discharge: 24 - 48 hours
Subjective/Interval History
-
Date of Service: March 11, 2025
Patient reports his left ear pain is 3 out of 10 in intensity. He denies chest pain, denies shortness of breath. No fever, no vomiting.
Objective Data
-
Labs:
Laboratory Results
03/11/25
06:51
WBC 8.6
Hgb 13.4
Hct 40.7
Plt Count 261
Sodium 140
Potassium 4.4
Chloride 107
Carbon Dioxide 25
BUN 14
Creatinine 0.8
Glucose 108 H
Calcium 9.5
Vital Signs:
Vital Signs
Temp Pulse Resp BP Pulse Ox
98.2 F 72 18 112/66 97
03/11/25 07:00 03/11/25 07:00 03/11/25 07:00 03/11/25 07:00 03/11/25 07:00
I&O
03/10/25 03/11/25 03/12/25
06:59 06:59 06:59
Intake Total 1680 / 1680 960 / 960
Output Total 100 / 100
Balance 1580 / 1580 960 / 960
--- NOTE | 2025-03-11 14:03 | W.PN.ID1 ---
Date of Service
Date of Service: March 11, 2025
Today's Communication
Continue antibiotics.
Assessment / Plan
(L) Sided Ear Pain
Hx of L mastoiditis/temporal bone osteomyelitis
- s/p 6 weeks of IV meropenem; final dose 01/23/25
hx of chronic otitis externa
Recommendations:
Ear canal culture only with coag negative staph
- previously with Pseudomonas resistant to ciprofloxacin
-
- Continue with cefepime for today.
- gallium scan completed; report pending.
����������������������������������������������������������
Chief Complaint
-: Other (Left ear pain)
Subjective / Review of Systems
Patient seen and examined. Reports intermittent, but mild�minimal left ear pain today.
Review of Systems: No Fever and No Chills
Vital Signs / Physical Exam
Vital Signs
Vital Signs
Temp Pulse Resp BP Pulse Ox
98.2 F 72 18 112/66 97
03/11/25 07:00 03/11/25 07:00 03/11/25 07:00 03/11/25 07:00 03/11/25 07:00
Physical Exam
Constitutional: No Acute Distress, Comfortable and Non-toxic
Head: Other (left mastoid tenderness)
Oropharyngeal: Other (No TMJ tenderness to palpation)
Cardiovascular: Regular Rate and S1/S2; Negative S3/S4
Pulmonary: Clear
Gastrointestinal: Soft and Non Tender
Extremities: Negative Edema
Neurological: Awake and Alert
Objective Data
Lab Data
Lab Results
03/11/25 06:51
03/11/25 06:51
Estimated Creat Clear 66 ml/min 03/11/25 06:51
Total Bilirubin 0.5 mg/dl (0.2-1.3) 03/09/25 07:11
AST 19 U/L (17-59) 03/09/25 07:11
ALT 15 U/L (0-50) 03/09/25 07:11
Alkaline Phosphatase 75 U/L (38-126) 03/09/25 07:11
Most recent labs reviewed.
Micro Results:
03/08/25 17:09 Wound Culture - Preliminary
Face - Left Gram Stain - Preliminary
03/08/25 17:09 Anaerobic Culture - Preliminary
Face - Left Culture pending. Anaerobic cultures are examined after 3
days incubation. Additional information to follow.
Imaging:
03/11/2025 Gallium scan: Pending
--- NOTE | 2025-03-11 14:43 | CM ---
CM reviewed chart, patient seen bedside with .
Patient confirms he has had home infusion ([facility]) and [facility] in past.
ID following.
Awaiting Gallium scan results.
Care ongoing, will continue to follow for all d/c planning needs.
Plan; home with watch, watch for home infusion, VN needs
[2025-03-11 15:17] VITALS: BP 135/70
[2025-03-11 19:40] VITALS: BP 133/55
[2025-03-11] MEDS: REFRESH EYE DROPS (PF) 1 DROPS BOTH EYES (21:38)
[2025-03-11] MEDS: CRESTOR 10 MG PO (21:39)
[2025-03-11 23:10] VITALS: BP 135/71
[2025-03-12] MEDS: TORADOL 15 MG IV ×2 (03:44→09:45)
[2025-03-12 03:47] VITALS: BP 130/62
[2025-03-12 07:57] VITALS: BP 140/67
--- NOTE | 2025-03-12 08:36 | W.PN.UPDATE ---
Update Note
Progress Note Update
Pt still w mild pain , primarily in front of the L ear
Gallium scan showed activity in the mastoid , no activity in canal or jaw area
Afebrile
No mastoid tenderness, no cellulitis
Canal not swollen
A/P L ear otalgia
Does have activity on scan in L mastoid suggesting chronic infection or osteomyelitis in this area, but clinically not symptomatic in this area
Area of discomfort seems more TMJ or musculoskeletal in nature
Would treat with NSAIDs and warm soaks
From my perspective , pt could likely be discharged on oral antibiotics, ibuprofen, warm soaks and start of course of Gentamycin eye drops in the left ear BID
However, if ID feels that prolonged IV antibx are needed, then should consider PICC line at this point, pt eager to go home
can follow up as oupt with us, if osteomyelitis in bone, may consider referral , possible surgical intervention
[2025-03-12] MEDS: THERAGRAN 1 TABLET PO (09:25)
[2025-03-12] MEDS: VISBIOME 1 CAP PO (09:25)
[2025-03-12] MEDS: PEPCID 10 MG PO (09:25)
[2025-03-12] MEDS: NORVASC 5 MG PO (09:25)
[2025-03-12] MEDS: PLAQUENIL 200 MG PO (09:25)
[2025-03-12] MEDS: STERILE WATER FOR INJECTION 10 ML IV (09:37)
[2025-03-12] MEDS: MAXIPIME 2000 MG IV (09:37)
[2025-03-12] MEDS: GENOPTIC 0.3% EYE DROPS 4 DROP LEFT EAR (11:33)
[2025-03-12 11:57] VITALS: BP 140/73
--- NOTE | 2025-03-12 14:47 | W.PN.HOSP.TC ---
Today's Communication/Plan
-
Discharge
Assessment / Plan
Assessment / Plan
79-year-old with left ear pain. Patient was admitted to [facility] in December for left otitis externa/mastoiditis osteomyelitis and was discharged on meropenem for 6 weeks. Last dose was 01/23/2025. He was seen again in the ER and was
discharged with ciprofloxacin and Cipro drops on 02/27/2025. Patient comes back with ongoing pain muffled hearing in the left ear no purulence or drainage
Gallium 67 nuclear medicine scan-increased uptake of gallium 67 with a left mastoid air cells on 24 and 48-hour images suggestive of infection/osteomyelitis
Awake alert oriented
Mild pain left ear
On examination no discharge no redness
# Left-sided ear pain-left mastoiditis/temporal bone osteomyelitis
History of otitis externa
Status post 6 weeks of meropenem completed on 01/23/2025
History of Pseudomonas resistant to ciprofloxacin in the past (intermediate sensitivity only)
Gallium scan results as above. Per discussion with radiology it is not conclusive that this is active infection
Pain control NSAIDS + Tylenol. Patient had nausea and vomiting with opiates
Per discussion with ENT, infectious disease-no further antibiotics at this point
ENT recommends gentamicin eyedrops and ibuprofen for discharge
Long-term use of ibuprofen and side effects such as GI side effects and renal side effects discussed with the patient
If this does not get better , he may need referral to tertiary facility for surgery
# Hypertension-continue amlodipine
# Hyperlipidemia-continue Crestor
# Rheumatoid arthritis-continue Plaquenil
# History of pacemaker placement
# Prediabetes
# GERD-continue famotidine
# History of prostate cancer status post radiation in the past
# DVT prophylaxis-Lovenox
# Full code
Discussed with ENT, radiology, infectious disease
Discussed with patient's at bedside
Discussed with nursing
More than 30 minutes spent in discharge including
Final examination of the patient
Summarizing hospital stay
Instructions for continuing care to all relevant caregivers
Preparation of discharge records, prescriptions, and referral forms
Total time spent (in minutes): 36 min
Part of this note was created using voice recognition system. Occasional wrong word or��sound alike� substitutions may have inadvertently occurred due to the inherent limitations of voice recognition software. If noted kindly bring it to my
attention for correction.
Anticipated Discharge: Today
Subjective/Interval History
-
Date of Service: March 12, 2025
Objective Data
-
Vital Signs:
Vital Signs
Temp Pulse Resp BP Pulse Ox
98.5 F 77 12 140/73 98
03/12/25 11:57 03/12/25 11:57 03/12/25 11:57 03/12/25 11:57 03/12/25 11:57
I&O
03/11/25 03/12/25 03/13/25
06:59 06:59 06:59
Intake Total 960 / 960 480 / 480
Balance 960 / 960 480 / 480
--- NOTE | 2025-03-12 14:52 | W.DS.TRANS ---
Addendum entered and electronically signed by Lis Grace MD 03/13/25 15:22:
Dictation- [id number]
Original Note:
DC Summary - [employer]
-
Discharge Instructions:
Discharge Diagnosis/Procedures Left-sided ear pain-left mastoiditis/temporal
bone osteomyelitis
Hypertension-continue amlodipine
Hyperlipidemia-continue Crestor
Rheumatoid arthritis-continue Plaquenil
History of pacemaker placement
Prediabetes
GERD-continue famotidine
History of prostate cancer status post radiation
in the past
Diet As tolerated
Additional Diets NO CONCENTRATED SUGARS
Driving Restrictions As prior to admission
Instructions:
Stand-Alone Forms:
Changes to Home Medications: Yes
Discharge Medications:
DC Medications w/original date entered in [employer]
rosuvastatin 10 mg tablet 10 mg PO HS High cholesterol 04/01/22
acetaminophen 325 mg tablet (Tylenol) 650 mg PO Q6HPRN PRN mild pain ##0 12/12/24
hydroxychloroquine 200 mg tablet (Plaquenil) 200 mg PO DAILY Rheumatoid Arthritis ##0 12/12/24
therapeutic multivitamin 1 tab PO DAILY Supplement ##0 12/12/24
amlodipine 5 mg tablet 5 mg PO DAILY high blood pressure 30 days #30 tabs 12/17/24
Lactobac no.2-Bifidobac no.1-S. thermo 112.5 billion cell capsule (Visbiome) 1 cap PO DAILY Supplement 03/08/25
polyvinyl alcohol-povidone (PF) 1.4 %-0.6 % eye drops in a dropperette (Refresh Classic (PF)) 1 drops BOTH EYES HS Eye Condition 03/08/25
famotidine 20 mg tablet 20 mg PO BID Gastrointestinal issue #60 tabs 03/12/25
gentamicin 0.3 % eye drops 4 drp LEFT EAR BID ent #5 mL 03/12/25
ibuprofen 400 mg tablet 400 mg PO TID ent #30 tabs 03/12/25
Home Medication Changes
new
gentamicin 0.3 % eye drops 4 drp LEFT EAR BID ent #5 mL 03/12/25
ibuprofen 400 mg tablet 400 mg PO TID ent #30 tabs 03/12/25
Pending Results: No
--- NOTE | 2025-03-12 14:53 | W.PN.ID1 ---
Date of Service
Date of Service: March 12, 2025
Today's Communication
Discontinue antibiotics.
Assessment / Plan
(L) Sided Ear Pain
Hx of L mastoiditis/temporal bone osteomyelitis
- s/p 6 weeks of IV meropenem; final dose 01/23/25
hx of chronic otitis externa
Recommendations:
Ear canal culture only with coag negative staph
- previously with Pseudomonas resistant to ciprofloxacin
Gallium scan reviewed, with findings suggestive of infection, although it would be difficult to delineate whether this is new, or is residual from prior. Patient was treated for presumed mastoiditis/osteomyelitis in late December through mid
January, and the above findings may reflect residual inflammation in the area.
Would favor discontinuing further antibiotics at this time, although ongoing IV antibiotics was offered to the patient, but via shared decision making, he declined.
Will defer pain control to ENT.
If it is felt there is ongoing infection, would pursue biopsy/debridement of the area and sent for culture which can guide further antimicrobial therapy.
����������������������������������������������������������
Chief Complaint
-: Other (Left ear pain)
Subjective / Review of Systems
Patient seen and examined. Reports left ear discomfort, improved from admission.
Vital Signs / Physical Exam
Vital Signs
Vital Signs
Temp Pulse Resp BP Pulse Ox
98.5 F 77 12 140/73 98
03/12/25 11:57 03/12/25 11:57 03/12/25 11:57 03/12/25 11:57 03/12/25 11:57
Physical Exam
Constitutional: No Acute Distress, Comfortable and Non-toxic
Head: Other (left mastoid tenderness)
Oropharyngeal: Other (No TMJ tenderness to palpation)
Cardiovascular: Regular Rate and S1/S2; Negative S3/S4
Pulmonary: Clear
Gastrointestinal: Soft and Non Tender
Extremities: Negative Edema
Neurological: Awake and Alert
Objective Data
Lab Data
Lab Results
03/11/25 06:51
03/11/25 06:51
Estimated Creat Clear 66 ml/min 03/11/25 06:51
Total Bilirubin 0.5 mg/dl (0.2-1.3) 03/09/25 07:11
AST 19 U/L (17-59) 03/09/25 07:11
ALT 15 U/L (0-50) 03/09/25 07:11
Alkaline Phosphatase 75 U/L (38-126) 03/09/25 07:11
Most recent labs reviewed.
Micro Results:
03/08/25 17:09 Anaerobic Culture - Preliminary
Face - Left NO ANAEROBES ISOLATED
03/08/25 17:09 Wound Culture -coag negative staph
Face - Left Gram Stain - Preliminary
Imaging:
03/11/2025 Gallium scan: increased uptake in the region of the left side mastoid air cells, most pronounced on 24-hour imaging, but with persistent abnormal uptake on 48-hour delayed image. Findings suggestive of infection/osteomyelitis.
Care Review
Plan reviewed with: Physician (Hospitalist, ENT, Radiology)
--- NOTE | 2025-03-12 15:08 | CM ---
CM reviewed chart, patient seen with .
Patient for d.c today, declined need for [facility]N, update to liaison.
Patient no longer on IV antibiotics.
IMM verbally reviewed, provided with copy, placed in chart.
CM will continue to follow for all d/c planning needs.
Plan; home no needs, declined VN
[2025-03-12 15:23] VITALS: BP 151/74
== END 2025-03-12 16:05 | disposition home or self-care (01) | DRG 540 ==
LOC: 4 WEST ACU 13:07
PROVIDERS: Emergency Medicine; Student in an Organized Health Care Education/Training Program; ADMITTING PHYSICIAN Internal Medicine; ATTENDING PHYSICIAN Hospitalist; CONSULT PHYSICIAN Otolaryngology; CONSULT PHYSICIAN Student in an Organized Health Care Education/Training Program; EMERGENCY PHYSICIAN Emergency Medicine; FAMILY PHYSICIAN Family Medicine
DX: M86.18 Other acute osteomyelitis, other site (principal); H70.002 Acute mastoiditis without complications, left ear; E11.69 Type 2 diabetes mellitus with other specified complication; I10 Essential (primary) hypertension; M06.9 Rheumatoid arthritis, unspecified; K21.9 Gastro-esophageal reflux disease without esophagitis; Z79.899 Other long term (current) drug therapy; H60.8X2 Other otitis externa, left ear; H92.02 Otalgia, left ear
CPT/HCPCS: 78801; 80048; 80053; 82962; 83036; 85025; 85027; 87070; 87075; 87147; 87205; 90662; 96374; 99285; A9556; G0008

== ENCOUNTER → 2025-03-23 10:03 | Outpatient (REF) | payer MEDICARE, OTHER, SELFPAY | LOC: HWRAD 10:03 | PROVIDERS: ATTENDING PHYSICIAN Otolaryngology | DX: H60.22 Malignant otitis externa, left ear (principal) | CPT/HCPCS: 70480 ==